=== PATIENT | female | born 1980 | race Caucasian/White ===

== ENCOUNTER 2016-09-26 13:57 | Emergency (ER) | payer MEDICAID ==
[~2016-09-26] VITALS: Ht 160 cm; Wt 45.0 kg
[~2016-09-26 13:57] MED LIST: ACET500C PO; CIPR250T52 PO; ZOFR4TAB3 SL
[2016-09-26 14:23] VITALS: BP 140/103; PULSE 111; RESP 18; TEMP 98.6; O2SAT 98
[2016-09-26] MEDS ORDERED: KETOROLAC TROMETHAMINE 60 MG/2 ML (IM) VIAL IM ONE (15:30)
[2016-09-26] MEDS ORDERED: PROMETHAZINE INJ 25 MG/ML VIAL IM ONE (15:30)
--- NOTE | 2016-09-26 15:34 | PD ---
HPI Chief Complaint: Abdominal Pain Time Seen by Provider: 15:19 Travel History International Travel<30 days: No Contact w/Intl Traveler<30days: No Traveled to known affect area: No History of Present Illness HPI 36-year-old female complains of abdominal pain. Patient has history recurrent abdominal pain. Patient states that she has history of endometriosis and awaiting appointment with cotton header. Patient has been to in emergency room multiple times in the past for the same problem. Blood tests and CT scan abdomen pelvis essentially unchanged much. Occasionally patient has mild hypokalemia. Patient denies any fever chills. Patient states that she has intermittent nausea vomiting with the pain. Patient denies any dysuria or frequency. Patient denies any vaginal discharge or bleeding. On a scale of 1- 10 the pain is a 10. PFSH Past Medical History Hx Anticoagulant Therapy: No Arthritis: No Asthma: No Autoimmune Disease: No Blood Disorders: No Anxiety: No Depression: No Heart Rhythm Problems: No Cancer: No Cardiovascular Problems: No High Cholesterol: No Chemotherapy: No Chest Pain: No Congestive Heart Failure: No COPD: No Cerebrovascular Accident: No Diabetes: No Diminished Hearing: No Endocrine: No Gastrointestinal Disorders: Yes (GASTROPARESIS, poss. IBS, chronic abdominal pain) GERD: Yes Glaucoma: No Genitourinary: No Headaches: No Hepatitis: No Hiatal Hernia: Yes Hypertension: No Immune Disorder: No Implanted Vascular Access Dvce: No Kidney Stones: No Musculoskeletal: No Neurologic: Yes Psychiatric: No Reproductive: Yes (endometriosis) Respiratory: No Immunizations Current: No Migraines: No Myocardial Infarction: No Radiation Therapy: No Seizures: No Sickle Cell Disease: No Sleep Apnea: No Thyroid Disease: No Ulcer: Yes ?: Not : 3 Para: 2 Miscarriage: 0 : 1 Ovarian Cysts: Yes Past Surgical History Abdominal Surgery: Yes (multiple laps for scar tissue removal) AICD: No Appendectomy: No Arteriovenous Shunt: No Cardiac Surgery: No Section: Yes Cholecystectomy: No Ear Surgery: No Endocrine Surgery: No Eye Surgery: No Genitourinary Surgery: Yes Gynecologic Surgery: Yes (csection/ lining of uterus removed) Insulin Pump: No Joint Replacement: No Neurologic Surgery: Yes Oral Surgery: No Pacemaker: No Thoracic Surgery: No Tonsillectomy: Yes Social History Alcohol Use: No Tobacco Use: No Substance Use: Yes (SOCIAL marijuana) Allergies-Medications (Allergen,Severity, Reaction): Coded Allergies: Amoxicillin (Verified Allergy, Severe, VOMITING, 09/26/16) Morphine (Verified Allergy, Severe, Hives , 09/26/16) Penicillin (Verified Allergy, Severe, VOMITING, 09/26/16) Sulfa (Verified Adverse Reaction, Severe, VOMITING, 09/26/16) Reported Meds & Prescriptions Reported Meds & Active Scripts Active Cipro (Ciprofloxacin HCl) 250 Mg Tab 250 Mg PO BID 3 Days Zofran Odt (Ondansetron Odt) 4 Mg Tab 4 Mg SL Q6HR PRN Acetaminophen 500 Mg Cap 500 Mg PO Q4-6H PRN Review of Systems General / Constitutional: No: Fever Eyes: No: Visual changes HENT: No: Headaches Cardiovascular: No: Chest Pain or Discomfort Respiratory: No: Shortness of Breath Gastrointestinal: Positive: Nausea, Vomiting, Abdominal Pain Genitourinary: No: Dysuria Musculoskeletal: No: Pain Skin: No Rash Neurologic: No: Weakness Psychiatric: No: Depression Endocrine: No: Polydipsia Hematologic/Lymphatic: No: Easy Bruising Physical Exam Narrative GENERAL: Well-nourished, well-developed patient. SKIN: Warm and dry. HEAD: Normocephalic. EYES: No scleral icterus. No injection or drainage. NECK: Supple, trachea midline. No JVD or lymphadenopathy. CARDIOVASCULAR: Regular rate and rhythm without murmurs, gallops, or rubs. RESPIRATORY: Breath sounds equal bilaterally. No accessory muscle use. GASTROINTESTINAL: Abdomen soft, nondistended. Patient has mild diffuse tenderness over the abdomen. No rebound tenderness. No mass. MUSCULOSKELETAL: No cyanosis, or edema. BACK: Nontender without obvious deformity. No CVA tenderness. Neurologic exam normal. Data Data Last Documented VS Vital Signs Date Time Temp Pulse Resp B/P Pulse Ox O2 Delivery O2 Flow Rate FiO2 09/26/16 14:23 98.6 111 18 140/103 98 Orders Urinalysis - C+S If Indicated (09/26/16 14:17) Ed Urine Pregnancytest Poc (09/26/16 14:17) Ketorolac Inj (Toradol Inj) (09/26/16 15:30) Promethazine Inj (Phenergan Inj) (09/26/16 15:30) MDM Medical Decision Making Medical Screen Exam Complete: Yes Emergency Medical Condition: Yes Medical Record Reviewed: Yes Differential Diagnosis Differential diagnosis including chronic recurrent abdominal pain. Gastritis, PUD, appendicitis, cholecystitis, colitis, UTI, pyelonephritis. Narrative Course 36-year-old female with recurrent abdominal pain and pelvic pain. Patient was offered Toradol and Phenergan for pain. Patient refused and walked out. Diagnosis Primary Impression: Recurrent abdominal pain Patient Instructions: General Instructions Additional Instructions: Patient left AMA. Med/Other Pt SpecificInfo: No Change to Meds Disposition: 07 AGAINST MEDICAL ADVICE Condition: Konrad Sanchez MD Sep 26, 2016 15:34
== END 2016-09-26 15:32 | disposition left against medical advice (07) ==
LOC: PHED 13:57
DX: R10.84 Generalized abdominal pain (principal); R11.2 Nausea with vomiting, unspecified; R10.2 Pelvic and perineal pain; N80.9 Endometriosis, unspecified; Z87.19 Personal history of other diseases of the digestive system; Z53.20 Procedure and treatment not carried out because of patient's decision for unspecified reasons
CPT/HCPCS: 99283

== ENCOUNTER 2016-09-26 21:04 | Emergency (ER) | payer MEDICAID ==
[~2016-09-26] VITALS: Ht 160 cm; Wt 46.0 kg
[2016-09-26 21:06] VITALS: BP 159/80; PULSE 103; RESP 16; TEMP 97.2; O2SAT 98
[2016-09-27] MEDS ORDERED: PROMETHAZINE INJ 25 MG/ML VIAL IM ONE (03:00)
[2016-09-27] MEDS ORDERED: KETOROLAC TROMETHAMINE 60 MG/2 ML (IM) VIAL IM ONE (03:00)
--- NOTE | 2016-09-27 04:05 | PD ---
HPI Chief Complaint: GI Complaint Time Seen by Provider: 02:48 Travel History International Travel<30 days: No Contact w/Intl Traveler<30days: No Traveled to known affect area: No History of Present Illness HPI 36-year-old female came to the emergency room with history of abdominal pain and vomiting. Patient has had these complaints multiple times in the past. 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 [facility] Past Medical History Narrative Medical List of her past medical history as reviewed from the nursing note. Hx Anticoagulant Therapy: No Arthritis: No Asthma: No Autoimmune Disease: No Blood Disorders: No Anxiety: No Depression: No Heart Rhythm Problems: No Cancer: No Cardiovascular Problems: No High Cholesterol: No Chemotherapy: No Chest Pain: No Congestive Heart Failure: No COPD: No Cerebrovascular Accident: No Diabetes: No Diminished Hearing: No Endocrine: No Gastrointestinal Disorders: Yes (GASTROPARESIS, poss. IBS, chronic abdominal pain) GERD: Yes Glaucoma: No Genitourinary: No Headaches: No Hepatitis: No Hiatal Hernia: Yes Hypertension: No Immune Disorder: No Implanted Vascular Access Dvce: No Kidney Stones: No Musculoskeletal: No Neurologic: Yes Psychiatric: No Reproductive: Yes (endometriosis) Respiratory: No Immunizations Current: No Migraines: No Myocardial Infarction: No Radiation Therapy: No Seizures: No Sickle Cell Disease: No Sleep Apnea: No Thyroid Disease: No Ulcer: Yes ?: Not LMP: FEB>ABLATION : 3 Para: 2 Miscarriage: 0 : 1 Ovarian Cysts: Yes Past Surgical History Abdominal Surgery: Yes (multiple laps for scar tissue removal) AICD: No Appendectomy: No Arteriovenous Shunt: No Cardiac Surgery: No Section: Yes Cholecystectomy: No Ear Surgery: No Endocrine Surgery: No Eye Surgery: No Genitourinary Surgery: Yes Gynecologic Surgery: Yes (csection/ lining of uterus removed) Insulin Pump: No Joint Replacement: No Neurologic Surgery: Yes Oral Surgery: No Pacemaker: No Thoracic Surgery: No Tonsillectomy: Yes Other Surgery: Yes (colon polyp rempoval) Social History Alcohol Use: No Tobacco Use: No Substance Use: Yes (SOCIAL marijuana) Allergies-Medications (Allergen,Severity, Reaction): Coded Allergies: Amoxicillin (Verified Allergy, Severe, VOMITING, 09/26/16) Morphine (Verified Allergy, Severe, Hives , 09/26/16) Penicillin (Verified Allergy, Severe, VOMITING, 09/26/16) Sulfa (Verified Adverse Reaction, Severe, VOMITING, 09/26/16) Comments List of her allergies reviewed from the nursing note. Reported Meds & Prescriptions Reported Meds & Active Scripts Active Narrative Medication List of her home medications reviewed from the nursing note. Review of Systems Except as stated in HPI: all other systems reviewed are Neg Physical Exam Narrative GENERAL: Awake, alert, anxious, moderate distress SKIN: Warm and dry. HEAD: Atraumatic. Normocephalic. EYES: Pupils equal and round. No scleral icterus. No injection or drainage. ENT: No nasal bleeding or discharge. Mucous membranes pink and moist. NECK: Trachea midline. No JVD. CARDIOVASCULAR: Regular rate and rhythm. No murmur appreciated. RESPIRATORY: No accessory muscle use. Clear to auscultation. Breath sounds equal bilaterally. GASTROINTESTINAL: Abdomen soft, non-tender, nondistended. Hepatic and splenic margins not palpable. MUSCULOSKELETAL: No obvious deformities. No clubbing. No cyanosis. No edema. NEUROLOGICAL: Awake and alert. No obvious cranial nerve deficits. Motor grossly within normal limits. Normal speech. PSYCHIATRIC: Appropriate mood and affect; insight and judgment normal. Data Data Last Documented VS Vital Signs Date Time Temp Pulse Resp B/P Pulse Ox O2 Delivery O2 Flow Rate FiO2 09/26/16 21:06 97.2 103 16 159/80 98 Orders Promethazine Inj (Phenergan Inj) (09/27/16 03:00) Ketorolac Inj (Toradol Inj) (09/27/16 03:00) [facility] Medical Decision Making Medical Screen Exam Complete: Yes Emergency Medical Condition: Yes Medical Record Reviewed: Yes Differential Diagnosis Acute on chronic abdominal pain Narrative Course 4:04 AM patient will be discharged home. She was given IM Phenergan and IM Toradol. She has not vomited since. Procedures EKG Prior to Arrival: No Diagnosis Primary Impression: Chronic abdominal pain Additional Impression: Recurrent abdominal pain Referrals: Primary Care Physician 2 days Additional Instructions: Follow-up with primary care. Disposition: 01 DISCHARGE HOME Condition: Stable Pro Yepez MD Sep 27, 2016 04:05
== END 2016-09-27 05:46 | disposition home or self-care (01) ==
LOC: NEPE 21:04
DX: R10.9 Unspecified abdominal pain (principal)
CPT/HCPCS: 96372; 99284; J1885; J2550

== ENCOUNTER 2016-11-10 05:01 | Emergency (ER) | payer MEDICAID ==
[~2016-11-10] VITALS: Ht 160 cm; Wt 46.3 kg
[2016-11-10 05:13] VITALS: BP 135/90; PULSE 126; RESP 22; TEMP 98.3; O2SAT 100
[2016-11-10] MEDS ORDERED: MEDR2.5 PO (05:57)
[2016-11-10] MEDS ORDERED: SODIUM CHLOR 0.9% 1000 ML INJ 1,000 ML IV ONE (06:07)
[2016-11-10] MEDS ORDERED: ONDANSETRON HCL 4 MG/2 ML VIAL IV PUSH ONE (06:15)
[2016-11-10] MEDS ORDERED: KETOROLAC TROMETHAMINE 30 MG/ML (IVP) VIAL IV PUSH ONE (06:15)
--- NOTE | 2016-11-10 06:21 | PD ---
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 Patient reports that she has been diagnosed with endometriosis and intractable pain. Patient reports she was seen at [facility] in September. Patient reports at that time she was told that she would be given a prescription for Provera. If her symptoms did not resolve that she would need to have a hysterectomy. She reportedly had uterine ablation in 2014. Patient states that she feels as if she is going to have her menstrual cycle although she no longer menstruates. Patient has had no fever or chills. Patient states she last took Percocet on Sunday and has had vomiting since that time. Patient reports that she needs Zofran and Dilaudid as is the only thing that controls her pain. Patient does not report any hematemesis coffee-ground emesis melena or hematochezia. Patient denies dysuria frequency or urgency. Patient denies vaginal bleeding or vaginal discharge. Patient does not have a local SUPERVISOR FUSING ROOM. Patient is to be followed by Dr. Shi in [place]. Patient is not scheduled to see the [facility] pickers material handlers until December. Patient also has history of gastroparesis and cyclic vomiting syndrome. [facility] Past Medical History Narrative Medical Endometriosis, cyclic vomiting syndrome, gastroparesis, GERD, hiatal hernia, C- section, laparotomy, laparoscopic pelvic surgery, uterine ablation; marijuana use; nursing notes reviewed Hx Anticoagulant Therapy: No Arthritis: No Asthma: No Autoimmune Disease: No Blood Disorders: No Anxiety: No Depression: No Heart Rhythm Problems: No Cancer: No Cardiovascular Problems: No High Cholesterol: No Chemotherapy: No Chest Pain: No Congestive Heart Failure: No COPD: No Cerebrovascular Accident: No Diabetes: No Diminished Hearing: No Endocrine: No Gastrointestinal Disorders: Yes (GASTROPARESIS, poss. IBS, chronic abdominal pain) GERD: Yes Glaucoma: No Genitourinary: No Headaches: No Hepatitis: No Hiatal Hernia: Yes Hypertension: No Immune Disorder: No Implanted Vascular Access Dvce: No Kidney Stones: No Musculoskeletal: No Neurologic: Yes Psychiatric: No Reproductive: Yes (endometriosis) Respiratory: No Immunizations Current: No Migraines: No Myocardial Infarction: No Radiation Therapy: No Seizures: No Sickle Cell Disease: No Sleep Apnea: No Thyroid Disease: No Ulcer: Yes ?: Not : 3 Para: 2 Miscarriage: 0 : 1 Ovarian Cysts: Yes Past Surgical History Abdominal Surgery: Yes (multiple laps for scar tissue removal) AICD: No Appendectomy: No Arteriovenous Shunt: No Cardiac Surgery: No Section: Yes Cholecystectomy: No Ear Surgery: No Endocrine Surgery: No Eye Surgery: No Genitourinary Surgery: Yes Gynecologic Surgery: Yes (csection/ lining of uterus removed) Insulin Pump: No Joint Replacement: No Neurologic Surgery: Yes Oral Surgery: No Pacemaker: No Thoracic Surgery: No Tonsillectomy: Yes Other Surgery: Yes (colon polyp rempoval) Social History Alcohol Use: No Tobacco Use: No (QUIT AGE 34) Substance Use: Yes (SOCIAL marijuana) Allergies-Medications (Allergen,Severity, Reaction): Coded Allergies: Amoxicillin (Verified Allergy, Severe, VOMITING, 11/10/16) Morphine (Verified Allergy, Severe, Hives , 11/10/16) Penicillin (Verified Allergy, Severe, VOMITING, 11/10/16) Sulfa (Verified Adverse Reaction, Severe, VOMITING, 11/10/16) Reported Meds & Prescriptions Reported Meds & Active Scripts Active Reported Provera (Medroxyprogesterone Acetate) 2.5 Mg Tab 2.5 Mg PO DAILY Start day 21 Narrative Medication Percocet Review of Systems Except as stated in HPI: all other systems reviewed are Neg General / Constitutional: No: Fever, Chills HENT: No: Congestion Cardiovascular: No: Chest Pain or Discomfort Respiratory: No: Shortness of Breath Gastrointestinal: Positive: Nausea, Vomiting, Abdominal Pain, No: Hematemesis , Hematochezia Genitourinary: Positive: Pelvic Pain, No: Urgency, Frequency, Dysuria, Discharge, Vaginal Bleeding Musculoskeletal: No: Myalgias, Arthralgias Skin: No Rash Neurologic: No: Weakness Psychiatric: No: Anxiety Hematologic/Lymphatic: No: Easy Bruising Physical Exam Narrative GENERAL: Well-developed well-nourished thin female writhing back and forth on the bed stating that her pelvic pain is so severe she can't tolerate it. SKIN: Warm and dry. Chronic irregular hyperpigmentation to the back. HEAD: Normocephalic. EYES: No scleral icterus. No injection or drainage. NECK: Supple, trachea midline. No JVD or lymphadenopathy. CARDIOVASCULAR: Regular rate and rhythm without murmurs, gallops, or rubs. RESPIRATORY: Breath sounds equal bilaterally. No accessory muscle use. GASTROINTESTINAL: Abdomen soft, non-tender, nondistended. MUSCULOSKELETAL: No cyanosis, or edema. BACK: Nontender without obvious deformity. No CVA tenderness. Data Data Last Documented VS Vital Signs Date Time Temp Pulse Resp B/P Pulse Ox O2 Delivery O2 Flow Rate FiO2 11/10/16 05:13 98.3 126 22 135/90 100 Orders Complete Blood Count With Diff (11/10/16 06:07) Basic Metabolic Panel (Bmp) (11/10/16 06:07) Wet Prep Profile (11/10/16 06:07) Urinalysis - C+S If Indicated (11/10/16 06:07) Iv Access Insert/Monitor (11/10/16 06:07) Sodium Chlor 0.9% 1000 Ml Inj (Ns 1000 M (11/10/16 06:07) Ed Urine Pregnancytest Poc (11/10/16 06:07) Ketorolac Inj (Toradol Inj) (11/10/16 06:15) Ondansetron Inj (Zofran Inj) (11/10/16 06:15) Ct Abd/Pel W Iv Contrast(Rout) (11/10/16 ) Us Pelvis Comp W Dop Transvag (11/10/16 ) Hydromorphone Pf Inj (Dilaudid Pf Inj) (11/10/16 07:00) Cath For Specimen (11/10/16 06:52) Labs Laboratory Tests Test 11/10/16 11/10/16 06:05 06:20 Clue Cells (Wet Prep) NONE SEEN Vaginal Trichomonas (Wet Prep) NONE SEEN Vaginal Yeast (Wet Prep) NONE SEEN White Blood Count 19.1 TH/MM3 Red Blood Count 4.66 MIL/MM3 Hemoglobin 14.8 GM/DL Hematocrit 42.5 % Mean Corpuscular Volume 91.2 FL Mean Corpuscular Hemoglobin 31.8 PG Mean Corpuscular Hemoglobin 34.8 % Concent Red Cell Distribution Width 12.7 % Platelet Count 403 TH/MM3 Mean Platelet Volume 8.0 FL Neutrophils (%) (Auto) 88.9 % Lymphocytes (%) (Auto) 6.8 % Monocytes (%) (Auto) 3.5 % Eosinophils (%) (Auto) 0.0 % Basophils (%) (Auto) 0.8 % Neutrophils # (Auto) 16.9 TH/MM3 Lymphocytes # (Auto) 1.3 TH/MM3 Monocytes # (Auto) 0.7 TH/MM3 Eosinophils # (Auto) 0.0 TH/MM3 Basophils # (Auto) 0.2 TH/MM3 CBC Comment DIFF FINAL Differential Comment Sodium Level 137 MEQ/L Potassium Level 3.1 MEQ/L Chloride Level 99 MEQ/L Carbon Dioxide Level 24.9 MEQ/L Anion Gap 13 MEQ/L Blood Urea Nitrogen 28 MG/DL Creatinine 1.00 MG/DL Estimat Glomerular Filtration 62 ML/MIN Rate Random Glucose 166 MG/DL Calcium Level 9.9 MG/DL [facility] Medical Decision Making Medical Screen Exam Complete: Yes Emergency Medical Condition: Yes Medical Record Reviewed: Yes Interpretation(s) Vital Signs Date Time Temp Pulse Resp B/P Pulse Ox O2 Delivery O2 Flow Rate FiO2 11/10/16 05:13 98.3 126 22 135/90 100 CBC & BMP Diagram 11/10/16 06:20 Differential Diagnosis Chronic pain syndrome, endometriosis, UTI, ruptured ovarian cyst, ovarian torsion, ectopic , narcotic withdrawal , drug seeking behavior Narrative Course IV access obtained urine specimen collected [id number] 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 Bello for pending follow-up of pending labs and imaging studies and patient disposition Missy Gillespie MD Nov 10, 2016 06:21
[2016-11-10 06:43] LABS: AUTOMATED NEUTROPHIL # 16.9 TH/MM3 (1.8-7.7); BASOPHIL # 0.2 TH/MM3 (0-0.2); BASOPHIL % 0.8 % (0.0-2.0); HEMATOCRIT 42.5 % (35.0-46.0); LYMPH % 6.8 % (9.0-44.0); LYMPHOCYTE # 1.3 TH/MM3 (1.0-4.8); MEAN CELL VOLUME 91.2 FL (80.0-100.0); MEAN CORPUSCULAR HEMOGLOBIN 31.8 PG (27.0-34.0); MEAN CORPUSCULAR HGB CONC 34.8 % (32.0-36.0); MONO % 3.5 % (0.0-8.0); NEUT % 88.9 % (16.0-70.0); PLATELET COUNT 403 TH/MM3 (150-450); RED BLOOD COUNT 4.66 MIL/MM3 (4.00-5.30); RED CELL DISTRIBUTION WIDTH 12.7 % (11.6-17.2); WHITE BLOOD COUNT 19.1 TH/MM3 (4.0-11.0)
[2016-11-10 06:44] LABS: HEMO FLAGS DIFF FINAL
[2016-11-10 06:52] LABS: POTASSIUM 3.1 MEQ/L (3.5-5.1)
[2016-11-10 06:54] LABS: BICARBONATE 24.9 MEQ/L (21.0-32.0)
[2016-11-10] MEDS ORDERED: HYDROmorphone HCL PF 1 MG/ML VIAL IV PUSH ONE (07:00)
[2016-11-10 07:10] VITALS: BP 143/87; PULSE 97; RESP 16; TEMP 100; O2SAT 100
[2016-11-10 07:15] LABS: BLOOD, URINE NEG (NEG); GLUCOSE,URINE NEG (NEG); KETONE, URINE 15 mg/dL (NEG); NITRITE,URINE NEG (NEG); PH, URINE 5.5 (5.0-8.5)
[2016-11-10 07:27] LABS: METHOD OF COLLECTION CLEAN CATCH; URINE COLOR YELLOW (YELLW/STRAW)
[2016-11-10 07:28] LABS: COMMENT (UR) CULT NOT INDICATED; CULTURE IF INDICATED CULT NOT INDICATED; SQUAMOUS EPITHELIAL CELL URINE 0-5 /hpf (0-5); WBC, URINE 0-2 /hpf (0-5)
[2016-11-10] MEDS ORDERED: IOHEXOL 350 MG/ML 10 ML VIAL (for RAD DIAG) IV ONE (07:39)
--- NOTE | 2016-11-10 08:00 | RADHPO ---
EXAM DATE/TIME: 11/10/2016 07:28 [facility] COMPARISON: CT ABDOMEN & PELVIS W/O CONTRAST, March 09, 2016, 8:34. INDICATIONS : Lower abdominal pain x 3 days. IV CONTRAST: 80 cc Omnipaque 350 (iohexol) IV ORAL CONTRAST: No oral contrast ingested. RADIATION DOSE: 4.45 CTDIvol (mGy) MEDICAL HISTORY : Gastroesophageal reflux disease. SURGICAL HISTORY : section. Hysterectomy.Uterine ablation. ENCOUNTER: Initial ACUITY: 3 days PAIN SCALE: 9/10 LOCATION: Bilateral lower quadrant TECHNIQUE: Volumetric scanning of the abdomen and pelvis was performed. Using automated exposure control and adjustment of the mA and/or kV according to patient size, radiation dose was kept as low as reasonably achievable to obtain optimal diagnostic quality images. FINDINGS: LOWER LUNGS: The visualized lower lungs are clear. LIVER: Homogeneous density without lesion. There is no dilation of the biliary tree. No calcifi ed gallstones. Gallbladder seen as a luminal structure without wall thickening SPLEEN: Normal size without lesion. PANCREAS: Within normal limits. KIDNEYS: Normal in size and shape. There is no mass, stone or hydronephrosis. ADRENAL GLANDS: Within normal limits. VASCULAR: There is no aortic aneurysm. BOWEL/MESENTERY: The stomach, small bowel, and colon demonstrate no acute abnormality. There is no free intraperitoneal air or fluid. ABDOMINAL WALL: Within normal limits. RETROPERITONEUM: There is no lymphadenopathy. BLADDER: No wall thickening or mass. REPRODUCTIVE: 2.2 cm right pelvic adnexal probably ovarian cyst.. INGUINAL: There is no lymphadenopathy or hernia. MUSCULOSKELETAL: Within normal limits for patient age. CONCLUSION: 2.2 cm right adnexal ovarian cyst Jerry Valdes MD on November 10, 2016 at 7:54 Board Certified Radiologist. This report was verified electronically.
[2016-11-10 09:13] VITALS: BP 107/74; PULSE 73; RESP 17; TEMP 98; O2SAT 98
--- NOTE | 2016-11-10 09:18 | RADHPO ---
EXAM DATE/TIME: 11/10/2016 12:55 [facility] COMPARISON: CT ABDOMEN & PELVIS W CONTRAST, November 10, 2016, 7:28. INDICATIONS : Pelvic pain. Abnormal abdomen pelvic CT demonstrating a 2.2 cm right adnexal cyst. MEDICAL HISTORY : Gastroesophageal reflux disease. Gastroparesis. Hernia, hiatal. Head trauma. Ulcer. Endometriosis. Ov pati cyst. SURGICAL HISTORY : Tonsillectomy. section. Uterine ablation. ENCOUNTER: Initial ACUITY: 3 days PAIN SCORE: 3/10 LOCATION: Right pelvis MEASUREMENTS: UTERUS: 7.5 x 4.2 x 5.0 cm ENDOMETRIAL STRIPE: 7 mm RIGHT OVARY: 3.0 x 2.7 x 2.3 cm LEFT OVARY: 3.2 x 2.0 x 2.1 cm FINDINGS: UTERUS: The myometrium has homogeneous echotexture without mass. RIGHT OVARY: There is a 1.7 x 1.8 x 1.8 cm cystic structure in the right ovary with apparent mild septation. There is no abnormal color flow. LEFT OVARY: Ovary contains no mass or significant cystic lesion. MISCELLANEOUS: Small amount of fluid in the cul-de-sac. CONCLUSION: 1. Mild to complex right ovarian cyst. 2. Small amount of free fluid in the cul-de-sac. Kenny Lee MD on November 10, 2016 at 9:10 Board Certified Radiologist. This report was verified electronically.
--- NOTE | 2016-11-10 10:37 | PD ---
Data Data Last Documented VS Vital Signs Date Time Temp Pulse Resp B/P Pulse Ox O2 Delivery O2 Flow Rate FiO2 11/10/16 09:13 98.0 73 17 107/74 98 Room Air Orders Complete Blood Count With Diff (11/10/16 06:07) Basic Metabolic Panel (Bmp) (11/10/16 06:07) Wet Prep Profile (11/10/16 06:07) Urinalysis - C+S If Indicated (11/10/16 06:07) Iv Access Insert/Monitor (11/10/16 06:07) Sodium Chlor 0.9% 1000 Ml Inj (Ns 1000 M (11/10/16 06:07) Ed Urine Pregnancytest Poc (11/10/16 06:07) Ketorolac Inj (Toradol Inj) (11/10/16 06:15) Ondansetron Inj (Zofran Inj) (11/10/16 06:15) Ct Abd/Pel W Iv Contrast(Rout) (11/10/16 ) Hydromorphone Pf Inj (Dilaudid Pf Inj) (11/10/16 07:00) Cath For Specimen (11/10/16 06:52) Iohexol 350 Inj (Omnipaque 350 Inj) (11/10/16 07:39) Us Pelvis Comp W Doppler (11/10/16 ) Labs Laboratory Tests Test 11/10/16 11/10/16 11/10/16 06:05 06:20 06:55 Clue Cells (Wet Prep) NONE SEEN Vaginal Trichomonas (Wet Prep) NONE SEEN Vaginal Yeast (Wet Prep) NONE SEEN White Blood Count 19.1 TH/MM3 Red Blood Count 4.66 MIL/MM3 Hemoglobin 14.8 GM/DL Hematocrit 42.5 % Mean Corpuscular Volume 91.2 FL Mean Corpuscular Hemoglobin 31.8 PG Mean Corpuscular Hemoglobin 34.8 % Concent Red Cell Distribution Width 12.7 % Platelet Count 403 TH/MM3 Mean Platelet Volume 8.0 FL Neutrophils (%) (Auto) 88.9 % Lymphocytes (%) (Auto) 6.8 % Monocytes (%) (Auto) 3.5 % Eosinophils (%) (Auto) 0.0 % Basophils (%) (Auto) 0.8 % Neutrophils # (Auto) 16.9 TH/MM3 Lymphocytes # (Auto) 1.3 TH/MM3 Monocytes # (Auto) 0.7 TH/MM3 Eosinophils # (Auto) 0.0 TH/MM3 Basophils # (Auto) 0.2 TH/MM3 CBC Comment DIFF FINAL Differential Comment Sodium Level 137 MEQ/L Potassium Level 3.1 MEQ/L Chloride Level 99 MEQ/L Carbon Dioxide Level 24.9 MEQ/L Anion Gap 13 MEQ/L Blood Urea Nitrogen 28 MG/DL Creatinine 1.00 MG/DL Estimat Glomerular Filtration 62 ML/MIN Rate Random Glucose 166 MG/DL Calcium Level 9.9 MG/DL Urine Collection Type CLEAN CATCH Urine Color YELLOW Urine Turbidity MARKED Urine pH 5.5 Urine Specific Fox 1.033 Urine Protein 100 mg/dL Urine Glucose (UA) NEG mg/dL Urine Ketones 15 mg/dL Urine Occult Blood NEG Urine Nitrite NEG Urine Bilirubin NEG Urine Leukocyte Esterase NEG Urine WBC 0-2 /hpf Urine Squamous Epithelial 0-5 /hpf Cells Urine Amorphous Sediment LARGE Microscopic Urinalysis Comment CULT NOT INDICATED Urine Collection Time 06:55 MDM Supervised Visit with LIV: No Narrative Course This case is checked out to me by Dr. Gillespie at 7 AM. I have reviewed the entirety of the workup and discussed them with the patient. She had leukocytosis and hypokalemia on lab studies. Extensive imaging including CT of abdomen and pelvis and ultrasound both were negative except for a minor right ovarian cyst which I suspect is an incidental finding. This patient clearly has some narcotic issues. When I went into the room she started begging and badgering me for IV Dilaudid. I didn't feel this was indicated. I discussed other options and offered her other things which she refused. She got upset and started crying. I suspect she is having some emotional pain and likely narcotic withdrawal symptoms. As noted, the patient got upset and stomped out of the emergency room. She did not let me finish. She did not get instructions or prescriptions. Behavior is highly suspicious for narcotic seeking behavior. Diagnosis Primary Impression: Recurrent abdominal pain Additional Impression: Drug-seeking behavior Patient Instructions: General Instructions Departure Forms: Tests/Procedures Disposition: 07 AGAINST MEDICAL ADVICE Murali Bello MD Nov 10, 2016 10:37
== END 2016-11-10 10:48 | disposition left against medical advice (07) ==
LOC: PHED 05:01
DX: R10.2 Pelvic and perineal pain (principal); Z76.5 Malingerer [conscious simulation]; E87.6 Hypokalemia; D72.829 Elevated white blood cell count, unspecified; N83.201 Unspecified ovarian cyst, right side; K44.9 Diaphragmatic hernia without obstruction or gangrene; K21.9 Gastro-esophageal reflux disease without esophagitis; K31.84 Gastroparesis; G89.29 Other chronic pain; K58.9 Irritable bowel syndrome, unspecified; N80.9 Endometriosis, unspecified
CPT/HCPCS: 74177; 76856; 80048; 81001; 84703; 85025; 87210; 93975; 96361; 96374; 96375; 99284; J1170; J1885; J2405; J7030; P9612; Q9967

== ENCOUNTER 2016-11-24 06:29 | Emergency (ER) | payer MEDICAID ==
[~2016-11-24] VITALS: Ht 160 cm; Wt 45.0 kg
[~2016-11-24 06:29] MED LIST changes: -ACET500C PO; -CIPR250T52 PO; +MEDR2.5 PO; -ZOFR4TAB3 SL
[2016-11-24 06:38] VITALS: BP 148/90; PULSE 120; RESP 16; TEMP 98.3; O2SAT 97
[2016-11-24] MEDS ORDERED: SODIUM CHLOR 0.9% 1000 ML INJ 1,000 ML IV SCH (07:10)
[2016-11-24 07:11] VITALS: RESP 16; O2SAT 98
[2016-11-24] MEDS ORDERED: ONDANSETRON HCL 4 MG/2 ML VIAL IVP ONE (07:15)
[2016-11-24] MEDS ORDERED: SODIUM CHLORIDE 0.9% FLUSH 5 ML FLUSH IVF PRN (07:15)
[2016-11-24] MEDS ORDERED: KETOROLAC TROMETHAMINE 30 MG/ML (IVP) VIAL IVP ONE (07:15)
--- NOTE | 2016-11-24 07:17 | PD ---
HPI Chief Complaint: Abdominal Pain Time Seen by Provider: 07:02 Travel History International Travel<30 days: No Contact w/Intl Traveler<30days: No Traveled to known affect area: No History of Present Illness HPI 36yo F with PMH of endometriosis, gastroparesis, cyclic vomiting and chronic abdominal pain presents to the ED with c/o abdominal pain for 2 weeks. +NBNB vomiting. Pt denies any fever, chest pain, sob, diarrhea, urinary complaint, vaginal bleeding or discharge. Pt was just seen at [place] 2 weeks ago on . Pt had same pain then and had CTa/p that showed 2.2cm right adnexal ovarian cyst. Pelvic US at that time also showed right ovarian cyst. Pt has drug seeking behavior and has been here multiple times for the same abdominal pain. She is begging for dilaudid and zofran and states dilaudid is the only medication that helps with her pain. States she is on hormone therapy from [facility] but they did not give her anything for pain. PFSH Past Medical History Hx Anticoagulant Therapy: No Arthritis: No Asthma: No Autoimmune Disease: No Blood Disorders: No Anxiety: No Depression: No Heart Rhythm Problems: No Cancer: No Cardiovascular Problems: No High Cholesterol: No Chemotherapy: No Chest Pain: No Congestive Heart Failure: No COPD: No Cerebrovascular Accident: No Diabetes: No Diminished Hearing: No Endocrine: No Gastrointestinal Disorders: Yes (GASTROPARESIS) GERD: Yes Glaucoma: No Genitourinary: No Headaches: No Hepatitis: No Hiatal Hernia: Yes Hypertension: No Immune Disorder: No Implanted Vascular Access Dvce: No Kidney Stones: No Musculoskeletal: No Neurologic: Yes Psychiatric: No Reproductive: Yes (ENDIOMETRESIS) Respiratory: No Immunizations Current: No Migraines: No Myocardial Infarction: No Radiation Therapy: No Seizures: No Sickle Cell Disease: No Sleep Apnea: No Thyroid Disease: No Ulcer: Yes Influenza Vaccination: No ?: Not : 3 Para: 2 Miscarriage: 0 : 1 Ovarian Cysts: Yes Past Surgical History Abdominal Surgery: Yes (EXP LAP) AICD: No Appendectomy: No Arteriovenous Shunt: No Cardiac Surgery: No Section: Yes Cholecystectomy: No Ear Surgery: No Endocrine Surgery: No Eye Surgery: No Genitourinary Surgery: Yes Gynecologic Surgery: Yes Insulin Pump: No Joint Replacement: No Neurologic Surgery: Yes Oral Surgery: No Pacemaker: No Thoracic Surgery: No Tonsillectomy: Yes Other Surgery: Yes (colon polyp rempoval) Social History Alcohol Use: No Tobacco Use: No (QUIT 2014) Substance Use: Yes (SOCIAL marijuana) Allergies-Medications (Allergen,Severity, Reaction): Coded Allergies: Amoxicillin (Verified Allergy, Severe, VOMITING, 11/24/16) Morphine (Verified Allergy, Severe, Hives , 11/24/16) Penicillin (Verified Allergy, Severe, VOMITING, 11/24/16) Sulfa (Verified Adverse Reaction, Severe, VOMITING, 11/24/16) Reported Meds & Prescriptions Reported Meds & Active Scripts Active Reported Provera (Medroxyprogesterone Acetate) 2.5 Mg Tab 2.5 Mg PO DAILY Start day 21 Review of Systems Except as stated in HPI: all other systems reviewed are Neg Physical Exam Narrative GENERAL: 36yo F not in acute distress. SKIN: Warm and dry. HEAD: Atraumatic. Normocephalic. NECK: Trachea midline. No JVD. CARDIOVASCULAR: Regular rate and rhythm. No murmur appreciated. RESPIRATORY: No accessory muscle use. Clear to auscultation. Breath sounds equal bilaterally. GASTROINTESTINAL: Abdomen soft, no guarding or rebound tenderness. States pain everywhere but no point tenderness on my exam. MUSCULOSKELETAL: No obvious deformities. No clubbing. No cyanosis. No edema. NEUROLOGICAL: Awake and alert. No obvious cranial nerve deficits. Motor grossly within normal limits. Normal speech. Data Data Last Documented VS Vital Signs Date Time Temp Pulse Resp B/P Pulse Ox O2 Delivery O2 Flow Rate FiO2 11/24/16 08:00 92 16 136/72 98 Room Air 11/24/16 06:38 98.3 Orders Complete Blood Count With Diff (11/24/16 07:10) Comprehensive Metabolic Panel (11/24/16 07:10) Lipase (11/24/16 07:10) Urinalysis - C+S If Indicated (11/24/16 07:10) Iv Access Insert/Monitor (11/24/16 07:10) Ecg Monitoring (11/24/16 07:10) Oximetry (11/24/16 07:10) Ondansetron Inj (Zofran Inj) (11/24/16 07:15) Sodium Chlor 0.9% 1000 Ml Inj (Ns 1000 M (11/24/16 07:10) Sodium Chloride 0.9% Flush (Ns Flush) (11/24/16 07:15) Ketorolac Inj (Toradol Inj) (11/24/16 07:15) Ed Urine Pregnancytest Poc (11/24/16 07:10) Bhcg Screen Qualitative (11/24/16 07:11) Ct Abd/Pel W Iv Contrast(Rout) (11/24/16 ) Potassium Chlor 20 Meq Premix (Kcl 20 Me (11/24/16 08:15) Potassium Chloride (Kcl) (11/24/16 08:15) Magnesium Sulfate 1 Gm Premix (Magnesium (11/24/16 08:15) Acetaminophen (Tylenol) (11/24/16 09:00) Labs Laboratory Tests Test 11/24/16 07:15 White Blood Count 14.3 TH/MM3 Red Blood Count 5.47 MIL/MM3 Hemoglobin 17.2 GM/DL Hematocrit 49.7 % Mean Corpuscular Volume 90.8 FL Mean Corpuscular Hemoglobin 31.4 PG Mean Corpuscular Hemoglobin 34.6 % Concent Red Cell Distribution Width 13.4 % Platelet Count 426 TH/MM3 Mean Platelet Volume 8.2 FL Neutrophils (%) (Auto) 81.5 % Lymphocytes (%) (Auto) 13.2 % Monocytes (%) (Auto) 4.2 % Eosinophils (%) (Auto) 0.4 % Basophils (%) (Auto) 0.7 % Neutrophils # (Auto) 11.7 TH/MM3 Lymphocytes # (Auto) 1.9 TH/MM3 Monocytes # (Auto) 0.6 TH/MM3 Eosinophils # (Auto) 0.1 TH/MM3 Basophils # (Auto) 0.1 TH/MM3 CBC Comment DIFF FINAL Differential Comment Sodium Level 131 MEQ/L Potassium Level 2.7 MEQ/L Chloride Level 99 MEQ/L Carbon Dioxide Level 18.8 MEQ/L Anion Gap 13 MEQ/L Blood Urea Nitrogen 20 MG/DL Creatinine 1.18 MG/DL Estimat Glomerular Filtration 51 ML/MIN Rate Random Glucose 211 MG/DL Calcium Level 9.9 MG/DL Total Bilirubin 0.8 MG/DL Aspartate Amino Transf 11 U/L (AST/SGOT) Alanine Aminotransferase 17 U/L (ALT/SGPT) Alkaline Phosphatase 64 U/L Total Protein 8.9 GM/DL Albumin 4.9 GM/DL Lipase 111 U/L Beta HCG, Qualitative LESS THAN 1 MIU/ML MDM Medical Decision Making Medical Screen Exam Complete: Yes Emergency Medical Condition: Yes Differential Diagnosis Ovarian cyst rupture vs. malingering vs. gastroparesis vs. opioid withdrawal Narrative Course 36yo F with chronic pain here with complaint of abdominal pain that feels like her usual pain that is only relieved with dilaudid. Pt given zofran, toradol for pain. Pt is demanding dilaudid and has pain seeking behavior so will not give dilaudid. Labs reviewed, leukocytosis at 14.3 but improved from last visit. H/H elevated. Pt given NS IVF. K is low at 2.7. Pt given 60mEq KCl PO and had 20mEq KCl IV ordered. bHCG negative. Magnesium 1gm IV given since K is low. Pt ripped out her IV and will not finish her evaluation because she is frustrated that she is not getting dilaudid. Explain to her that work up has not been completed. Pt is signing out against medical advice. VS stable. HR has decreased to 92bpm. AMA: The risks of leaving against medical advice without further evaluation treatment were discussed with the patient. These risks include cardiac dysfunction, cardiac dysrhythmia, possible heart attack, possible stroke or . The patient indicated understanding of these risks and appeared to have the capacity to make this decision. Diagnosis Primary Impression: Chronic abdominal pain Patient Instructions: General Instructions Departure Forms: Tests/Procedures Additional Instructions: Please return to the ED if you change your mind. Please follow up with PMD for chronic abdominal pain. Med/Other Pt SpecificInfo: No Change to Meds Disposition: 07 AGAINST MEDICAL ADVICE Condition: Stable Shana Granger Nov 24, 2016 07:17
[2016-11-24 07:36] LABS: AUTOMATED NEUTROPHIL # 11.7 TH/MM3 (1.8-7.7); BASOPHIL # 0.1 TH/MM3 (0-0.2); BASOPHIL % 0.7 % (0.0-2.0); EOSINOPHIL # 0.1 TH/MM3 (0-0.4); EOSINOPHIL % 0.4 % (0.0-4.0); HEMATOCRIT 49.7 % (35.0-46.0); HEMO FLAGS DIFF FINAL; LYMPH % 13.2 % (9.0-44.0); LYMPHOCYTE # 1.9 TH/MM3 (1.0-4.8); MEAN CELL VOLUME 90.8 FL (80.0-100.0); MEAN CORPUSCULAR HEMOGLOBIN 31.4 PG (27.0-34.0); MEAN CORPUSCULAR HGB CONC 34.6 % (32.0-36.0); MONO % 4.2 % (0.0-8.0); NEUT % 81.5 % (16.0-70.0); PLATELET COUNT 426 TH/MM3 (150-450); RED BLOOD COUNT 5.47 MIL/MM3 (4.00-5.30); RED CELL DISTRIBUTION WIDTH 13.4 % (11.6-17.2); WHITE BLOOD COUNT 14.3 TH/MM3 (4.0-11.0)
[2016-11-24 08:00] VITALS: BP 136/72; PULSE 92; RESP 16; O2SAT 98
[2016-11-24 08:09] LABS: ALKALINE PHOSPHATASE 64 U/L (45-117); ALT (GPT) 17 U/L (10-53); ANION GAP 13 MEQ/L (5-15); AST (GOT) 11 U/L (15-37); BICARBONATE 18.8 MEQ/L (21.0-32.0); BLOOD UREA NITROGEN 20 MG/DL (7-18); CHLORIDE 99 MEQ/L (98-107); GLOMERULAR FILTRATION RATE 51 ML/MIN (>89); SODIUM (NA) 131 MEQ/L (136-145); TOTAL BILIRUBIN ADULT 0.8 MG/DL (0.2-1.0)
[2016-11-24 08:15] LABS: POTASSIUM 2.7 MEQ/L (3.5-5.1)
[2016-11-24] MEDS ORDERED: MAGNESIUM SULFATE 1 GM PREMIX 100 ML IV ONE (08:15)
[2016-11-24] MEDS ORDERED: POTASSIUM CHLOR 20 MEQ PREMIX 100 ML IV ONE (08:15)
[2016-11-24] MEDS ORDERED: POTASSIUM CHLORIDE 20 MEQ CONTROLLED RELEASE TAB PO ONE (08:15)
[2016-11-24] MEDS ORDERED: ACETAMINOPHEN 325 MG TAB PO ONE (09:00)
[2016-11-24 09:16] VITALS: RESP 16
== END 2016-11-24 09:15 | disposition left against medical advice (07) ==
LOC: NEPC 06:29
DX: R10.9 Unspecified abdominal pain (principal); G89.29 Other chronic pain
CPT/HCPCS: 80053; 83690; 84703; 85025; 96361; 96365; 96375; 99284; J1885; J2405; J3475; J3480; J7030

== ENCOUNTER 2016-12-21 06:46 | Emergency (ER) | payer MEDICAID ==
[~2016-12-21] VITALS: Ht 160 cm; Wt 46.0 kg
[2016-12-21 06:53] VITALS: BP 140/101; PULSE 107; RESP 18; TEMP 98.3; O2SAT 100
[2016-12-21] MEDS ORDERED: SODIUM CHLOR 0.9% 1000 ML INJ 1,000 ML IV SCH (07:58)
[2016-12-21] MEDS ORDERED: SODIUM CHLORIDE 0.9% FLUSH 10 ML FLUSH IV FLUSH PRN (08:00)
[2016-12-21] MEDS ORDERED: PROCHLORPERAZINE INJ 10 MG/2 ML VIAL IV PUSH ONE (08:00)
[2016-12-21] MEDS ORDERED: KETOROLAC TROMETHAMINE 30 MG/ML (IVP) VIAL IVP ONE (08:00)
[2016-12-21] MEDS ORDERED: diphenhydrAMINE HCL 50 MG/ML VIAL IV PUSH ONE (08:00)
--- NOTE | 2016-12-21 08:06 | PD ---
HPI . Abdominal and back pain Chief Complaint: GI Complaint Time Seen by Provider: 07:52 Travel History International Travel<30 days: No Contact w/Intl Traveler<30days: No Traveled to known affect area: No History of Present Illness HPI Patient presents complaining with chronic abdominal and back pain. She reports a history of endometriosis and hurts all the time. He states her symptoms have been worse for the last couple of weeks. She reports nausea, vomiting, poor appetite area she denies fever. She denies urinary tract symptoms. She does admit to decreased urinary output. She reports no exacerbating or relieving factors. She states that she is currently on Provera oncologist and states that she is worse rather than better. [id number]: Diffuse abdomen and back SEVERITY: Severe DURATION: Chronic TIMING: Worse 2 weeks CONTEXT: History of endometriosis MODIFYING FACTORS: Exacerbated by Provera. No relieving factors ASSOCIATED SYMPTOMS: Nausea and vomiting PFSH Past Medical History Hx Anticoagulant Therapy: No Arthritis: No Asthma: No Autoimmune Disease: No Blood Disorders: No Anxiety: No Depression: No Heart Rhythm Problems: No Cancer: No Cardiovascular Problems: No High Cholesterol: No Chemotherapy: No Chest Pain: No Congestive Heart Failure: No COPD: No Cerebrovascular Accident: No Diabetes: No Diminished Hearing: No Endocrine: No Gastrointestinal Disorders: Yes (GASTROPARESIS) GERD: Yes Glaucoma: No Genitourinary: No Headaches: No Hepatitis: No Hiatal Hernia: Yes Hypertension: No Immune Disorder: No Implanted Vascular Access Dvce: No Kidney Stones: No Musculoskeletal: No Neurologic: Yes Psychiatric: No Reproductive: Yes (ENDIOMETRESIS) Respiratory: No Immunizations Current: No Migraines: No Myocardial Infarction: No Radiation Therapy: No Seizures: No Sickle Cell Disease: No Sleep Apnea: No Thyroid Disease: No Ulcer: Yes Influenza Vaccination: No ?: Not : 3 Para: 2 Miscarriage: 0 : 1 Ovarian Cysts: Yes Past Surgical History Abdominal Surgery: Yes (EXP LAP) AICD: No Appendectomy: No Arteriovenous Shunt: No Cardiac Surgery: No Section: Yes Cholecystectomy: No Ear Surgery: No Endocrine Surgery: No Eye Surgery: No Genitourinary Surgery: Yes Gynecologic Surgery: Yes Insulin Pump: No Joint Replacement: No Neurologic Surgery: Yes Oral Surgery: No Pacemaker: No Thoracic Surgery: No Tonsillectomy: Yes Other Surgery: Yes (colon polyp rempoval) Social History Alcohol Use: No Tobacco Use: Yes (1PPD) Substance Use: Yes (marijuana-LAST NIGHT) Allergies-Medications (Allergen,Severity, Reaction): Coded Allergies: Amoxicillin (Verified Allergy, Severe, VOMITING, 12/21/16) Morphine (Verified Allergy, Severe, Hives , 12/21/16) Penicillin (Verified Allergy, Severe, VOMITING, 12/21/16) Sulfa (Verified Adverse Reaction, Severe, VOMITING, 12/21/16) Reported Meds & Prescriptions Reported Meds & Active Scripts Active Reported Provera (Medroxyprogesterone Acetate) 2.5 Mg Tab 2.5 Mg PO DAILY Start day 21 Review of Systems Except as stated in HPI: all other systems reviewed are Neg General / Constitutional: No: Fever, Chills Gastrointestinal: Positive: Nausea, Vomiting, Abdominal Pain, No: Diarrhea Genitourinary: Positive: Decreased Urinary Output, No: Urgency, Frequency, Dysuria Psychiatric: Positive: Anxiety Physical Exam Narrative GENERAL: This is a very thin woman who is writhing on the bed and whining. SKIN: Warm and dry. HEAD: Atraumatic. Normocephalic. EYES: Pupils equal and round. ENT: No nasal bleeding or discharge. Mucous membranes pink and moist. NECK: Trachea midline. Neck supple. CARDIOVASCULAR: Regular rate and rhythm. Heart sounds normal. RESPIRATORY: No accessory muscle use. Lungs clear with full air movement throughout. GASTROINTESTINAL: Abdomen soft, non-tender, nondistended. MUSCULOSKELETAL: No obvious deformities. No edema. NEUROLOGICAL: Awake and alert. No obvious cranial nerve deficits. Motor grossly within normal limits. Normal speech. PSYCHIATRIC: Appropriate mood and affect; insight and judgment normal. Data Data Last Documented VS Vital Signs Date Time Temp Pulse Resp B/P Pulse Ox O2 Delivery O2 Flow Rate FiO2 12/21/16 06:53 98.3 107 18 140/101 100 Orders Basic Metabolic Panel (Bmp) (12/21/16 07:58) Complete Blood Count With Diff (12/21/16 07:58) Urinalysis - C+S If Indicated (12/21/16 07:58) Iv Access Insert/Monitor (12/21/16 07:58) Sodium Chlor 0.9% 1000 Ml Inj (Ns 1000 M (12/21/16 07:58) Sodium Chloride 0.9% Flush (Ns Flush) (12/21/16 08:00) Ketorolac Inj (Toradol Inj) (12/21/16 08:00) Ed Urine Pregnancytest Poc (12/21/16 07:58) Prochlorperazine Inj (Compazine Inj) (12/21/16 08:00) Diphenhydramine Inj (Benadryl Inj) (12/21/16 08:00) [facility] Medical Decision Making Medical Screen Exam Complete: Yes Emergency Medical Condition: Yes Medical Record Reviewed: Yes (patient has a history of multiple previous visits to the emergency department for similar symptoms. She has been previously labeled as drug-seeking behavior. She reportedly demand Dilaudid and attempt intimidation of the physician. She has left from here several times AMA when Dilaudid has been refused.) Differential Diagnosis Differential diagnosis of abdominal pain includes but is not limited to gastritis, pancreatitis, hepatitis, gastroenteritis, gallbladder disease, constipation, urinary retention, UTI, peptic ulcer disease, diverticulitis or appendicitis Narrative Course Patient presents with chronic abdominal and back pain secondary to endometriosis. She actually has the appearance of a drug user. She is very thin and malnourished appearing. We did weigh her and she has not lost any weight since the last time that she was here. I will give her some IV fluids and check some basic labs. I have ordered Toradol, Compazine and Benadryl for her symptoms. I do not plan to give her any narcotics. 9:25 AM The patient requested to see me regarding her pain management. I found her standing in the room doubled over. She was requesting Dilaudid. I explained to the patient that Dilaudid was not clinically indicated or her problem. 550 time that I return to the desk, the patient had pulled out her IV and walked out of the department standing straight up walking very briskly. Diagnosis Primary Impression: Chronic abdominal pain Disposition: AGAINST MEDICAL ADVICE Condition: Stable Tiffanie Britt MD Dec 21, 2016 08:05
== END 2016-12-21 09:25 | disposition left against medical advice (07) ==
LOC: PHED 06:46
DX: R10.9 Unspecified abdominal pain (principal); G89.29 Other chronic pain; N80.9 Endometriosis, unspecified; R11.2 Nausea with vomiting, unspecified
CPT/HCPCS: 96374; 96375; 99284; J0780; J1200; J1885; J7030

== ENCOUNTER 2016-12-23 08:09 | Observation (INO) | payer MEDICAID ==
[2016-12-23] VITALS (8 sets, daily range): BP systolic 105–136; BP diastolic 65–98; PULSE 51–112; RESP 14–20; TEMP 97.6–98.2; O2SAT 97–100
[2016-12-23] MEDS ORDERED: SODIUM CHLOR 0.9% 1000 ML INJ 1,000 ML IV SCH ×2 (08:29→13:16)
[2016-12-23] MEDS ORDERED: HYDROmorphone HCL PF 1 MG/ML VIAL IV PUSH ONE (08:30)
[2016-12-23] MEDS ORDERED: ONDANSETRON HCL 4 MG/2 ML VIAL IV PUSH ONE (08:30)
[2016-12-23] MEDS ORDERED: SODIUM CHLORIDE 0.9% FLUSH 10 ML FLUSH IV FLUSH PRN ×2 (08:30→13:30)
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
[2016-12-23 09:01] LABS: AUTOMATED NEUTROPHIL # 9.1 TH/MM3 (1.8-7.7); BASOPHIL # 0.1 TH/MM3 (0-0.2); BASOPHIL % 0.6 % (0.0-2.0); EOSINOPHIL % 0.1 % (0.0-4.0); HEMATOCRIT 48.6 % (35.0-46.0); HEMO FLAGS DIFF FINAL; LYMPH % 13.5 % (9.0-44.0); LYMPHOCYTE # 1.5 TH/MM3 (1.0-4.8); MEAN CELL VOLUME 90.9 FL (80.0-100.0); MEAN CORPUSCULAR HGB CONC 35.2 % (32.0-36.0); MONO % 4.7 % (0.0-8.0); NEUT % 81.1 % (16.0-70.0); PLATELET COUNT 405 TH/MM3 (150-450); RED BLOOD COUNT 5.34 MIL/MM3 (4.00-5.30); RED CELL DISTRIBUTION WIDTH 13.6 % (11.6-17.2); WHITE BLOOD COUNT 11.2 TH/MM3 (4.0-11.0)
[2016-12-23 09:11] LABS: APTT (PATIENT) 27.5 SEC (24.3-30.1); BLOOD, URINE SMALL (NEG); COMMENT (UR) CATH-CULT NOT IND; CULTURE IF INDICATED CATH CULTURE NOT IND; GLUCOSE,URINE 300 mg/dL (NEG); HYALINE CAST, URINE 58 /lpf (RARE); KETONE, URINE TRACE mg/dL (NEG); MUCUS URINE MANY /lpf (OCC); NITRITE,URINE NEG (NEG); PROTHROMBIN TIME - PATIENT 10.9 SEC (9.8-11.6); SQUAMOUS EPITHELIAL CELL URINE 2 /hpf (0-5); URINE COLOR YELLOW (YELLW/STRAW)
[2016-12-23 09:46] LABS: ANION GAP 15 MEQ/L (5-15)
[2016-12-23 09:47] LABS: ALKALINE PHOSPHATASE 70 U/L (45-117); ALT (GPT) 16 U/L (10-53); AST (GOT) 11 U/L (15-37); BICARBONATE 23.5 MEQ/L (21.0-32.0); BLOOD UREA NITROGEN 24 MG/DL (7-18); CHLORIDE 92 MEQ/L (98-107); GLOMERULAR FILTRATION RATE 40 ML/MIN (>89); SODIUM (NA) 130 MEQ/L (136-145); TOTAL BILIRUBIN ADULT 0.7 MG/DL (0.2-1.0)
[2016-12-23 09:48] LABS: POTASSIUM 2.4 MEQ/L (3.5-5.1)
[2016-12-23] MEDS: POTASSIUM CHLOR 20 MEQ PREMIX 100 ML IV SCH ×2 (09:58→12:24)
--- NOTE | 2016-12-23 10:48 | RADRPT ---
EXAM DATE/TIME: 12/23/2016 09:41 [facility] COMPARISON: CT ABDOMEN & PELVIS W/O CONTRAST, March 09, 2016, 8:34. INDICATIONS : Bilateral flank pain, nausea, vomiting. ORAL CONTRAST: No oral contrast ingested. RADIATION DOSE: 13.28 CTDIvol (mGy) MEDICAL HISTORY : Hernia, hiatal. Gastroparesis. Endometriosis. SURGICAL HISTORY : Uterine ablation. ENCOUNTER: Initial ACUITY: 4 - 6 days PAIN SCALE: 4/10 LOCATION: Bilateral flank TECHNIQUE: Volumetric scanning of the abdomen and pelvis was performed. Using automated exposure control and adjustment of the mA and/or kV according to patient size, radiation dose was kept as low as reasonably achievable to obtain optimal diagnostic quality images. FINDINGS: The lung bases are clear. Liver, spleen, pancreas and adrenal glands are unremarkable. There is no evidence for a renal stone. In the pelvis, there is a 2.6 cm cystic mass in the right adnexal region. Phleboliths are present in the pelvis. There is no adenopathy. Bowel gas pattern is remarkable only for air throughout the colon. CONCLUSION: 1. There is no evidence for obstructing stone. 2. Cystic mass in the right adnexal region as described above. 3. There is no free fluid. Ascencion Quiroga MD FACR on December 23, 2016 at 10:33 Board Certified Radiologist. This report was verified electronically.
[2016-12-23 11:01] LABS: AMPHETAMINE, URINE NEG (NEG); BARBITURATES, URINE NEG (NEG); COCAINE, URINE NEG (NEG)
[2016-12-23] MEDS ORDERED: METOCLOPRAMIDE HCL 10 MG/2 ML VIAL IV PUSH PRN (13:30)
[2016-12-23] MEDS ORDERED: ACETAMINOPHEN 325 MG TAB PO PRN ×2 (13:30)
[2016-12-23] MEDS ORDERED: SENNOSIDES 8.6 MG TAB PO PRN (14:00)
[2016-12-23] MEDS: HYDROmorphone HCL PF 1 MG/ML VIAL IV PRN ×2 (14:10→18:35)
[2016-12-23] MEDS: DOCUSATE SODIUM 100 MG CAP PO SCH ×2 (14:13→21:17)
[2016-12-23] MEDS: INSULIN ASPART SUPPLEMENTAL SCALE SQ SCH ×2 (16:00→21:00)
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
[2016-12-23] MEDS: ONDANSETRON HCL 4 MG/2 ML VIAL IVP PRN (16:28)
[2016-12-23] MEDS: NS + KCL 40 MEQ INJ 1,000 ML IV SCH (16:39)
[2016-12-23] MEDS ORDERED: PANTOPRAZOLE SODIUM 40 MG VIAL IV PUSH SCH (17:00)
[2016-12-23] MEDS: METOCLOPRAMIDE HCL 10 MG/2 ML VIAL IV PUSH SCH (17:00)
[2016-12-23 18:13] LABS: BICARBONATE 26.6 MEQ/L (21.0-32.0); MAGNESIUM 2.2 MG/DL (1.5-2.5)
[2016-12-23 18:18] LABS: POTASSIUM 2.5 MEQ/L (3.5-5.1)
[2016-12-23] MEDS ORDERED: POTASSIUM CHLORIDE 20 MEQ CONTROLLED RELEASE TAB PO ONE (18:30)
[2016-12-23] MEDS: POTASSIUM CHLOR 10 MEQ PREMIX 100 ML IV SCH ×2 (18:53→23:43)
[2016-12-23] MEDS: SODIUM CHLORIDE 0.9% FLUSH 10 ML FLUSH IV FLUSH SCH (21:00)
[2016-12-24 00:14] VITALS: BP 102/55; PULSE 52; RESP 20; TEMP 97.7; O2SAT 98
[2016-12-24] MEDS: ONDANSETRON HCL 4 MG/2 ML VIAL IVP PRN (01:03)
[2016-12-24] MEDS: HYDROmorphone HCL PF 1 MG/ML VIAL IV PRN ×2 (01:04→08:18)
[2016-12-24] MEDS: NS + KCL 40 MEQ INJ 1,000 ML IV SCH (03:21)
[2016-12-24] MEDS: POTASSIUM CHLOR 10 MEQ PREMIX 100 ML IV SCH (03:22)
[2016-12-24 03:33] VITALS: BP 107/57; PULSE 50; RESP 20; TEMP 97.5; O2SAT 99
[2016-12-24] MEDS: INSULIN ASPART SUPPLEMENTAL SCALE SQ SCH ×2 (05:37→10:53)
[2016-12-24 07:01] VITALS: BP 105/65; PULSE 50; RESP 20; TEMP 98; O2SAT 99
[2016-12-24 07:34] LABS: AUTOMATED NEUTROPHIL # 3.6 TH/MM3 (1.8-7.7); BASOPHIL % 0.3 % (0.0-2.0); EOSINOPHIL # 0.2 TH/MM3 (0-0.4); EOSINOPHIL % 2.3 % (0.0-4.0); HEMO FLAGS DIFF FINAL; LYMPH % 40.4 % (9.0-44.0); LYMPHOCYTE # 3.1 TH/MM3 (1.0-4.8); MEAN CORPUSCULAR HGB CONC 35.5 % (32.0-36.0); MONO % 9.4 % (0.0-8.0); NEUT % 47.6 % (16.0-70.0); PLATELET COUNT 236 TH/MM3 (150-450); RED BLOOD COUNT 3.78 MIL/MM3 (4.00-5.30); RED CELL DISTRIBUTION WIDTH 13.3 % (11.6-17.2); WHITE BLOOD COUNT 7.6 TH/MM3 (4.0-11.0)
[2016-12-24 07:37] LABS: ALKALINE PHOSPHATASE 48 U/L (45-117); ALT (GPT) 12 U/L (10-53); ANION GAP 9 MEQ/L (5-15); AST (GOT) 16 U/L (15-37); BICARBONATE 20.4 MEQ/L (21.0-32.0); CHLORIDE 108 MEQ/L (98-107); GLOMERULAR FILTRATION RATE 124 ML/MIN (>89); SODIUM (NA) 137 MEQ/L (136-145); TOTAL BILIRUBIN ADULT 0.3 MG/DL (0.2-1.0)
[2016-12-24 07:38] LABS: BLOOD UREA NITROGEN 11 MG/DL (7-18)
[2016-12-24 07:39] LABS: POTASSIUM 5.6 MEQ/L (3.5-5.1)
[2016-12-24 08:00] VITALS: PULSE 50
[2016-12-24] MEDS ORDERED: POTASSIUM PHOSPHATE MONOBASIC 500 MG TAB PO ONE ×2 (08:00→12:45)
[2016-12-24] MEDS ORDERED: SODIUM CHLOR 0.9% 1000 ML INJ 1,000 ML IV SCH (08:15)
[2016-12-24] MEDS: DOCUSATE SODIUM 100 MG CAP PO SCH (08:17)
[2016-12-24] MEDS: SODIUM CHLORIDE 0.9% FLUSH 10 ML FLUSH IV FLUSH SCH (08:18)
[2016-12-24] MEDS: METOCLOPRAMIDE HCL 10 MG/2 ML VIAL IV PUSH SCH ×2 (08:18→12:00)
--- NOTE | 2016-12-24 10:39 | HHI.PR ---
Subjective Remarks Follow-up for abdominal pain. Feels much better today. Patient still has some abdominal discomfort, states it is significantly improved. Reports abdominal pain is generalized. She's had no nausea or vomiting and is tolerating full diet. Ambulating. Objective Vitals Vital Signs Date Time Temp Pulse Resp B/P Pulse Ox O2 Delivery O2 Flow Rate FiO2 12/24/16 08:00 50 12/24/16 07:01 98.0 50 20 105/65 99 12/24/16 03:33 97.5 50 20 107/57 99 12/24/16 00:14 97.7 52 20 102/55 98 12/23/16 20:00 60 12/23/16 19:14 97.6 60 20 105/67 98 12/23/16 15:52 98.2 64 20 133/85 100 12/23/16 15:36 51 12/23/16 14:52 58 18 136/72 99 12/23/16 12:25 60 16 126/70 97 Room Air I/O 12/23/16 12/23/16 12/23/16 12/24/16 12/24/16 12/24/16 07:00 15:00 23:00 07:00 15:00 23:00 Intake Total 1655 ml Balance 1655 ml Intake IV Total 1655 ml # Voids 1 3 Result Diagram: 12/24/16 0513 12/24/16 0513 Imaging Last Impressions Abdomen/Pelvis CT 12/23/16 0000 Signed Impressions: Service Date/Time: Friday, December 23, 2016 09:41 - CONCLUSION: 1. There is no evidence for obstructing stone. 2. Cystic mass in the right adnexal region as described above. 3. There is no free fluid. Ascencion Quiroga MD FACR Objective Remarks GENERAL: Well-developed well-nourished. In no acute distress. SKIN: Warm and dry. Dark discoloration of lower back with evidence of livedo reticularis. HEENT: Normocephalic. Pupils equal and round. Mucous membranes pink and moist. CARDIOVASCULAR: Regular rate and rhythm. No murmur appreciated. RESPIRATORY: No accessory muscle use. Clear to auscultation. Breath sounds equal bilaterally. GASTROINTESTINAL: Abdomen soft, non-tender, nondistended. Bowel sounds x4. MUSCULOSKELETAL: No obvious deformities. No clubbing or cyanosis. No edema. NEUROLOGICAL: Awake and alert. No focal neurological deficits. Moves upper and lower extremities spontaneously. Normal speech. PSYCHIATRIC: Appropriate mood and affect; insight and judgment normal. A/P Assessment and Plan 36-year-old female with past medical history endometriosis, IBS, gastroparesis, cyclic vomiting, and ovarian cyst presents with abdominal pain Cyclic vomiting/centimeters/abdominal pain: Acute on chronic. Abdominal CT shows right adnexal cystic mass, otherwise no acute process. May be secondary to diabetic gastroparesis vs endometriosis. Antiemetics as needed with Reglan scheduled. IVF. IV PPI. Oral and intravenous narcotics as needed for pain. Diet as tolerated, added ensure. Hysterectomy at [facility] as scheduled. Acute kidney injury: Creatinine 1.47. Baseline is less than 1. UA with proteinuria, glucosuria, ketonuria, urobilinogen. IVF. Urine sodium and creatinine reviewed. Follow-up BMP after IVF shows creatinine trending down to 0.55. Resolved. Hypokalemia: Potassium 2.4 on hemolyzed sample. From decreased intake and vomiting. Repeat potassium 2.5. Given additional IV potassium bolus as well as maintenance. Magnesium within normal limits. Repeat potassium level this morning 5.6 on hemolyzed sample, will recheck. Hold additional supplementation for now. Hyperglycemia: Previous hemoglobin A1c was 5.0 on 06/13/16. Blood glucose 237 hemolyzed blood sample, repeat 107. UA with glycosuria and proteinuria. Following Accu-Cheks and covering with sliding scale insulin, has not required any insulin. Hemoglobin A1c pending. Hyperpigmented rash: May be secondary to autoimmune process. Outpt follow-up. Hypophosphatemia: Replace with potassium phosphorus if potassium within normal limits. DVT prophylaxis: SCDs Discharge Planning Follow-up repeat potassium level, if improved, possible discharge later today with pain medication and plans for outpatient follow-up. Lenard Shay Dec 24, 2016 10:39
[2016-12-24 10:51] VITALS: BP 100/57; PULSE 55; RESP 18; TEMP 98; O2SAT 100
[2016-12-24] MEDS ORDERED: OXYC-392 PO (12:44)
[2016-12-24] MEDS ORDERED: POTA-163 PO (12:44)
[2016-12-24] MEDS ORDERED: PANT40TA3 PO (12:44)
[2016-12-24] MEDS ORDERED: K-PHTAB PO (12:45)
--- NOTE | 2016-12-24 12:46 | HHI.DCPOC ---
Discharge Care Plan Diagnosis: (1) Endometriosis (2) Hypokalemia (3) Gastroparesis (4) Nausea & vomiting (5) Abdominal pain (6) Adnexal mass Goals to Promote Your Health * To prevent worsening of your condition and complications * To maintain your health at the optimal level Directions to Meet Your Goals Take your medications as prescribed Follow your dietary instruction Follow activity as directed Keep your appointments as scheduled Take your immunizations and boosters as scheduled If your symptoms worsen call your PCP, if no PCP go to Urgent Care Center or Emergency Room Smoking is Dangerous to Your Health. Avoid second hand smoke Call the 24-hour hour crisis hotline for domestic abuse at Kenny Barnard DO Dec 24, 2016 12:46
--- NOTE | 2016-12-24 12:51 | HHI.DS ---
Discharge Summary Admission Date Dec 23, 2016 at 11:29 Discharge Date: Dec 24, 2016 Admitting Diagnosis hypokalemia, nausea and vomiting, abdominal pain (1) Endometriosis ICD Code: N80.9 (2) Hypokalemia ICD Code: E87.6 (3) Nausea & vomiting ICD Code: R11.2 (4) Gastroparesis ICD Code: K31.84 Procedures None Brief History - From Admission 36-year-old female with past medical history endometriosis, IBS, gastroparesis, cyclic vomiting, and ovarian cyst presents with abdominal pain. The patient states that once a month she gets the symptoms of abdominal pain and intractable vomiting. The symptoms has been present since Sunday. She no longer has a period because she had an endometrial ablation. She locates the abdominal pain worse in her suprapubic area and in her right lower back. She also has some epigastric discomfort as well. She has an area keep down any solid food, has been tolerating fluids and some broth. She denies any hematemesis. She denies any diarrhea, constipation, dysuria, fever, shortness breath, chest pain. Ambulating with no difficulties, although she feels like her legs are heavy. She states she's been told that her symptoms are related to endometriosis, and the plan is to follow up with [facility] next week for hysterectomy. CBC/BMP: 12/24/16 0513 12/24/16 1031 Significant Findings Laboratory Tests Test 12/23/16 12/23/16 12/23/16 12/24/16 08:40 09:15 17:13 05:13 White Blood Count 11.2 TH/MM3 (4.0-11.0) Red Blood Count 5.34 MIL/MM3 3.78 MIL/MM3 (4.00-5.30) (4.00-5.30) Hemoglobin 17.1 GM/DL (11.6-15.3) Hematocrit 48.6 % 34.0 % (35.0-46.0) (35.0-46.0) Neutrophils (%) (Auto) 81.1 % (16.0-70.0) Neutrophils # (Auto) 9.1 TH/MM3 (1.8-7.7) Urine Turbidity HAZY (CLEAR) Urine Protein 300 mg/dL (NEG-TRACE) Urine Glucose (UA) 300 mg/dL (NEG) Urine Ketones TRACE mg/dL (NEG) Urine Occult Blood SMALL (NEG) Urine Urobilinogen 4.0 MG/DL (LESS THAN 2.0) Urine Mucus MANY /lpf (OCC) Urine Cannabinoids Screen POS (NEG) Sodium Level 130 MEQ/L 133 MEQ/L (136-145) (136-145) Potassium Level 2.4 MEQ/L 2.5 MEQ/L 5.6 MEQ/L (3.5-5.1) (3.5-5.1) (3.5-5.1) Chloride Level 92 MEQ/L 97 MEQ/L 108 MEQ/L (98-107) (98-107) (98-107) Blood Urea Nitrogen 24 MG/DL (7-18) Creatinine 1.47 MG/DL (0.50-1.00) Estimat Glomerular Filtration 40 ML/MIN (>89) 66 ML/MIN (>89) Rate Random Glucose 237 MG/DL 107 MG/DL (74-106) (74-106) Calcium Level 10.5 MG/DL 7.9 MG/DL (8.5-10.1) (8.5-10.1) Magnesium Level 2.7 MG/DL (1.5-2.5) Aspartate Amino Transf 11 U/L (15-37) (AST/SGOT) Total Protein 9.2 GM/DL 5.4 GM/DL (6.4-8.2) (6.4-8.2) Albumin 5.1 GM/DL 3.2 GM/DL (3.4-5.0) (3.4-5.0) Phosphorus Level 1.6 MG/DL (2.5-4.9) Monocytes (%) (Auto) 9.4 % (0.0-8.0) Carbon Dioxide Level 20.4 MEQ/L (21.0-32.0) Imaging Last Impressions Abdomen/Pelvis CT 12/23/16 0000 Signed Impressions: Service Date/Time: Friday, December 23, 2016 09:41 - CONCLUSION: 1. There is no evidence for obstructing stone. 2. Cystic mass in the right adnexal region as described above. 3. There is no free fluid. Ascencion Quiroga MD FACR PE at Discharge GENERAL: Well-developed well-nourished. In no acute distress. SKIN: Warm and dry. Dark discoloration of lower back with evidence of livedo reticularis. HEENT: Normocephalic. Pupils equal and round. Mucous membranes pink and moist. CARDIOVASCULAR: Regular rate and rhythm. No murmur appreciated. RESPIRATORY: No accessory muscle use. Clear to auscultation. Breath sounds equal bilaterally. GASTROINTESTINAL: Abdomen soft, non-tender, nondistended. Bowel sounds x4. MUSCULOSKELETAL: No obvious deformities. No clubbing or cyanosis. No edema. NEUROLOGICAL: Awake and alert. No focal neurological deficits. Moves upper and lower extremities spontaneously. Normal speech. PSYCHIATRIC: Appropriate mood and affect; insight and judgment normal. Hospital Course 36-year-old female with past medical history endometriosis, IBS, gastroparesis, cyclic vomiting, and ovarian cyst presents with abdominal pain Cyclic vomiting/centimeters/abdominal pain: Acute on chronic. Abdominal CT shows right adnexal cystic mass, otherwise no acute process. May be secondary to diabetic gastroparesis vs endometriosis. Antiemetics as needed with Reglan scheduled. IVF. IV PPI. Oral and intravenous narcotics as needed for pain. Diet as tolerated, added ensure. Hysterectomy at [facility] as scheduled. D/c on PPI and oxycodone. Low residue diet. Acute kidney injury: Creatinine 1.47. Baseline is less than 1. UA with proteinuria, glucosuria, ketonuria, urobilinogen. IVF. Urine sodium and creatinine reviewed. Follow-up BMP after IVF shows creatinine trending down to 0.55. Resolved. Hypokalemia/ Hypophosphatemia: Potassium 2.4 on hemolyzed sample. From decreased intake and vomiting. Repeat potassium 2.5. Given additional IV potassium bolus as well as maintenance. Magnesium within normal limits. Repeat potassium level this morning 5.6 on hemolyzed sample, will recheck. Hold additional supplementation for now. Repeat within normal limits. Pt will be discharged on potassium and phosphorous supplements. Hyperglycemia: Previous hemoglobin A1c was 5.0 on 06/13/16. Blood glucose 237 hemolyzed blood sample, repeat 107. UA with glycosuria and proteinuria. Following Accu-Cheks and covering with sliding scale insulin, has not required any insulin. Hemoglobin A1c normal. Outpt follow-up with PCP for glycosuria and proteinuria. Hyperpigmented rash: May be secondary to autoimmune process. Outpt follow-up. DVT prophylaxis: SCDs Pt Condition on Discharge: Good Discharge Disposition: Discharge Home Discharge Time: <= 30 minutes Discharge Instructions DIET: Follow Instructions for: Low Residue Diet Activities you can perform: Regular-No Restrictions Follow up Referrals: [facility] PCP Follow-up - 1 Week New Orders: BASIC METABOLIC PROF - 3-5 Days New Medications: Pantoprazole (Pantoprazole) 40 Mg Tab 40 MG PO DAILY Reflux #30 Ref 0 TAB Potassium Chloride ER (Potassium Chloride ER) 20 Meq Tab 20 MEQ PO DAILY Electrolyte Replacement #7 Ref 0 TAB Potassium Phosphate Monobasic (K-Phos) 500 Mg Tab 500 MG PO PCHS Electrolyte Replacement #30 Ref 0 TAB Oxycodone (Oxycodone) 5 Mg Tab 5 MG PO Q4H PRN pain #24 TAB Continued Medications: Medroxyprogesterone Acetate (Provera) 2.5 Mg Tab 2.5 MG PO DAILY Start day 21 Uterine bleeding #5 TAB Kenny Barnard DO Dec 24, 2016 12:51
== END 2016-12-24 13:45 | disposition home or self-care (01) ==
LOC: NEPC 08:09 → NEDA 11:29 → NEPHCDU 15:09
PROVIDERS: ADMIT Hospitalist; ATTEND Hospitalist
DX: G43.A0 Cyclical vomiting, in migraine, not intractable (principal); K31.84 Gastroparesis; N80.9 Endometriosis, unspecified; E83.39 Other disorders of phosphorus metabolism; K58.9 Irritable bowel syndrome, unspecified; N17.9 Acute kidney failure, unspecified; E87.6 Hypokalemia; R73.9 Hyperglycemia, unspecified; R21 Rash and other nonspecific skin eruption; K21.9 Gastro-esophageal reflux disease without esophagitis; F17.200 Nicotine dependence, unspecified, uncomplicated; Z88.1 Allergy status to other antibiotic agents; Z88.5 Allergy status to narcotic agent; Z88.0 Allergy status to penicillin; Z88.2 Allergy status to sulfonamides
CPT/HCPCS: 74176; 80048; 80053; 80307; 81001; 82570; 82948; 83036; 83690; 83735; 84100; 84132; 84300; 85025; 85610; 85730; 96361; 96374; 96375; 99285; C9113; G0378; J1170; J2405; J2765; J3480; J7030

== ENCOUNTER 2017-02-13 16:41 | Emergency (ER) | payer MEDICAID ==
[~2017-02-13] VITALS: Ht 160 cm; Wt 48.0 kg
[~2017-02-13 16:41] MED LIST changes: +K-PHTAB PO; +OXYC-392 PO; +PANT40TA3 PO; +POTA-163 PO
[2017-02-13 16:43] VITALS: BP 125/84; PULSE 108; RESP 16; TEMP 98; O2SAT 98
[2017-02-13] MEDS ORDERED: SODIUM CHLORIDE 0.9% FLUSH 10 ML FLUSH IV FLUSH PRN (17:45)
[2017-02-13] MEDS ORDERED: KETOROLAC TROMETHAMINE 30 MG/ML (IVP) VIAL IVP ONE (17:45)
[2017-02-13] MEDS ORDERED: ONDANSETRON HCL 4 MG/2 ML VIAL IVP ONE (17:45)
[2017-02-13 18:07] LABS: BASOPHIL # 0.2 TH/MM3 (0-0.2); BASOPHIL % 1.4 % (0.0-2.0); EOSINOPHIL # 0.1 TH/MM3 (0-0.4); EOSINOPHIL % 0.6 % (0.0-4.0); HEMATOCRIT 50.7 % (35.0-46.0); HEMO FLAGS DIFF FINAL; LYMPH % 18.7 % (9.0-44.0); LYMPHOCYTE # 2.3 TH/MM3 (1.0-4.8); MEAN CORPUSCULAR HEMOGLOBIN 31.1 PG (27.0-34.0); MEAN CORPUSCULAR HGB CONC 33.5 % (32.0-36.0); NEUT % 73.3 % (16.0-70.0); PLATELET COUNT 345 TH/MM3 (150-450); RED BLOOD COUNT 5.45 MIL/MM3 (4.00-5.30); RED CELL DISTRIBUTION WIDTH 13.1 % (11.6-17.2); WHITE BLOOD COUNT 12.3 TH/MM3 (4.0-11.0)
[2017-02-13 18:13] LABS: BACTERIA, URINE RARE /hpf; BLOOD, URINE NEG (NEG); COMMENT (UR) CULTURE INDICATED; CULTURE IF INDICATED CULTURE INDICATED; GLUCOSE,URINE TRACE mg/dL (NEG); KETONE, URINE NEG (NEG); MUCUS URINE MANY /lpf (OCC); NITRITE,URINE NEG (NEG); PH, URINE 5.5 (5.0-8.5); SQUAMOUS EPITHELIAL CELL URINE 1 /hpf (0-5)
[2017-02-13 18:14] LABS: URINE COLOR ORANGE (YELLW/STRAW)
--- NOTE | 2017-02-13 18:43 | PD ---
HPI . Flank pain Chief Complaint: Pain: Acute or Chronic Time Seen by Provider: 17:20 Travel History International Travel<30 days: No Contact w/Intl Traveler<30days: No Traveled to known affect area: No History of Present Illness HPI Patient presents with a chief complaint of flank pain which started 4 days ago. She describes the pain as sharp and rates it as 10/10. Patient denies any noted exacerbating or relieving factors. The patient's history is significant for endometriosis, IBS, gastroparesis, cyclic vomiting, ovarian cyst. Her records indicate that she was scheduled to have a hysterectomy in December. This has not been done. PFSH Past Medical History Hx Anticoagulant Therapy: No Arthritis: No Asthma: No Autoimmune Disease: No Blood Disorders: No Anxiety: No Depression: No Heart Rhythm Problems: No Cancer: No Cardiovascular Problems: No High Cholesterol: No Chemotherapy: No Chest Pain: No Congestive Heart Failure: No COPD: No Cerebrovascular Accident: No Diabetes: No Diminished Hearing: No Endocrine: No Gastrointestinal Disorders: Yes (GASTROPARESIS) GERD: Yes Glaucoma: No Genitourinary: No Headaches: No Hepatitis: No Hiatal Hernia: Yes Hypertension: No Immune Disorder: No Implanted Vascular Access Dvce: No Kidney Stones: No Musculoskeletal: No Neurologic: Yes Psychiatric: No Reproductive: Yes (ENDIOMETRESIS) Respiratory: No Immunizations Current: No Migraines: No Myocardial Infarction: No Radiation Therapy: No Seizures: No Sickle Cell Disease: No Sleep Apnea: No Thyroid Disease: No Ulcer: Yes ?: Not LMP: OCTOBER 2015 : 3 Para: 2 Miscarriage: 0 : 1 Ovarian Cysts: Yes Past Surgical History Abdominal Surgery: Yes (EXP LAP) AICD: No Appendectomy: No Arteriovenous Shunt: No Cardiac Surgery: No Section: Yes Cholecystectomy: No Ear Surgery: No Endocrine Surgery: No Eye Surgery: No Genitourinary Surgery: Yes Gynecologic Surgery: Yes Insulin Pump: No Joint Replacement: No Neurologic Surgery: Yes Oral Surgery: No Pacemaker: No Thoracic Surgery: No Tonsillectomy: Yes Other Surgery: Yes (colon polyp rempoval) Social History Alcohol Use: No Tobacco Use: Yes (1PPD) Substance Use: Yes (marijuana-LAST NIGHT) Allergies-Medications (Allergen,Severity, Reaction): Coded Allergies: Amoxicillin (Verified Allergy, Severe, VOMITING, 02/13/17) Morphine (Verified Allergy, Severe, Hives , 02/13/17) Penicillin (Verified Allergy, Severe, VOMITING, 02/13/17) Sulfa (Verified Adverse Reaction, Severe, VOMITING, 02/13/17) Reported Meds & Prescriptions Reported Meds & Active Scripts Active K-Phos (Potassium Phosphate Monobasic) 500 Mg Tab 500 Mg PO PCHS Potassium Chloride ER (Potassium Chloride) 20 Meq Tab 20 Meq PO DAILY Pantoprazole (Pantoprazole Sodium) 40 Mg Tab 40 Mg PO DAILY Oxycodone (Oxycodone HCl) 5 Mg Tab 5 Mg PO Q4H PRN Reported Provera (Medroxyprogesterone Acetate) 2.5 Mg Tab 2.5 Mg PO DAILY Start day 21 Review of Systems Except as stated in HPI: all other systems reviewed are Neg General / Constitutional: No: Fever, Chills Gastrointestinal: Positive: Nausea, Vomiting, Abdominal Pain, No: Diarrhea Genitourinary: Positive: Flank Pain, No: Urgency, Frequency, Dysuria Physical Exam Narrative Vital Signs Date Time Temp Pulse Resp B/P Pulse Ox O2 Delivery O2 Flow Rate FiO2 02/13/17 16:43 98.0 108 16 125/84 98 GENERAL: Thin, chronically ill-appearing woman who is contorting her body into very unusual positions. She has been whining continuously. SKIN: Warm and dry. HEAD: Atraumatic. Normocephalic. EYES: Pupils equal and round. Extraocular movements are intact. ENT: No nasal bleeding or discharge. Mucous membranes pink and moist. NECK: Trachea midline. Neck is supple. CARDIOVASCULAR: Regular rate and rhythm. Heart sounds are normal. Heart rate is 108. RESPIRATORY: No accessory muscle use. Lungs sound clear with good air movement throughout. GASTROINTESTINAL: Abdomen soft. Diffuse tenderness to palpation. Bowel sounds present. Nondistended. MUSCULOSKELETAL: No obvious deformities. No edema. The patient certainly has no limitation in movement. NEUROLOGICAL: Awake and alert. No obvious cranial nerve deficits. Motor grossly within normal limits. Normal speech. PSYCHIATRIC: Hystrionic affect Data Data Last Documented VS Vital Signs Date Time Temp Pulse Resp B/P Pulse Ox O2 Delivery O2 Flow Rate FiO2 02/13/17 16:43 98.0 108 16 125/84 98 Orders Complete Blood Count With Diff (02/13/17 17:43) Comprehensive Metabolic Panel (02/13/17 17:43) Urinalysis - C+S If Indicated (02/13/17 17:43) Iv Access Insert/Monitor (02/13/17 17:43) Ondansetron Inj (Zofran Inj) (02/13/17 17:45) Sodium Chloride 0.9% Flush (Ns Flush) (02/13/17 17:45) Ketorolac Inj (Toradol Inj) (02/13/17 17:45) Ed Urine Pregnancytest Poc (02/13/17 17:43) Drug Screen, Random Urine (02/13/17 17:43) Urine Culture (02/13/17 18:00) Ct Abd/Pel W Iv Contrast(Rout) (02/13/17 18:36) Ceftriaxone Inj (Rocephin Inj) (02/13/17 18:45) Iohexol 350 Inj (Omnipaque 350 Inj) (02/13/17 19:11) Labs Laboratory Tests Test 02/13/17 02/13/17 02/13/17 17:10 18:00 18:50 White Blood Count 12.3 TH/MM3 Red Blood Count 5.45 MIL/MM3 Hemoglobin 17.0 GM/DL Hematocrit 50.7 % Mean Corpuscular Volume 93.0 FL Mean Corpuscular Hemoglobin 31.1 PG Mean Corpuscular Hemoglobin 33.5 % Concent Red Cell Distribution Width 13.1 % Platelet Count 345 TH/MM3 Mean Platelet Volume 8.3 FL Neutrophils (%) (Auto) 73.3 % Lymphocytes (%) (Auto) 18.7 % Monocytes (%) (Auto) 6.0 % Eosinophils (%) (Auto) 0.6 % Basophils (%) (Auto) 1.4 % Neutrophils # (Auto) 9.0 TH/MM3 Lymphocytes # (Auto) 2.3 TH/MM3 Monocytes # (Auto) 0.7 TH/MM3 Eosinophils # (Auto) 0.1 TH/MM3 Basophils # (Auto) 0.2 TH/MM3 CBC Comment DIFF FINAL Differential Comment Urine Color ORANGE Urine Turbidity HAZY Urine pH 5.5 Urine Specific [place] 1.035 Urine Protein 300 mg/dL Urine Glucose (UA) TRACE mg/dL Urine Ketones NEG mg/dL Urine Occult Blood NEG Urine Nitrite NEG Urine Bilirubin NEG Urine Urobilinogen 4.0 MG/DL Urine Leukocyte Esterase TRACE Urine RBC 2 /hpf Urine WBC 11 /hpf Urine Squamous Epithelial 1 /hpf Cells Urine Amorphous Sediment RARE Urine Bacteria RARE /hpf Urine Mucus MANY /lpf Microscopic Urinalysis Comment CULTURE INDICATED Sodium Level 139 MEQ/L Potassium Level 3.2 MEQ/L Chloride Level 101 MEQ/L Carbon Dioxide Level 24.5 MEQ/L Anion Gap 14 MEQ/L Blood Urea Nitrogen 18 MG/DL Creatinine 1.06 MG/DL Estimat Glomerular Filtration 58 ML/MIN Rate Random Glucose 150 MG/DL Calcium Level 10.3 MG/DL Total Bilirubin 0.5 MG/DL Aspartate Amino Transf 10 U/L (AST/SGOT) Alanine Aminotransferase 19 U/L (ALT/SGPT) Alkaline Phosphatase 70 U/L Total Protein 9.1 GM/DL Albumin 5.0 GM/DL MDM Medical Decision Making Medical Screen Exam Complete: Yes Emergency Medical Condition: Yes Medical Record Reviewed: Yes (patient is seen here very frequently. She typically requests Dilaudid pain control.) Differential Diagnosis Differential diagnosis of abdominal pain includes but is not limited to gastritis, pancreatitis, hepatitis, gastroenteritis, gallbladder disease, constipation, urinary retention, UTI, peptic ulcer disease, diverticulitis or appendicitis Narrative Course Patient presents complaining with right flank pain. She is very difficult to evaluate because of her demeanor. Her urine does have rare bacteria, 11 white cells and trace leukocyte esterase. The nurse tells me that this is a catheterized sample. She has been given Rocephin. CT abd/pelvis: Right adnexal cystic structure again identified which appears mildly more prominent than on the prior study. This is most consistent with an ovarian cyst there is a smaller adjacent cyst. There is a mildly nonspecific bowel gas pattern most characteristic of an ileus. CBC Diagram 02/13/17 17:10 BMP Diagram 02/13/17 18:50 The patient appears to have a UTI but no evidence of pyelonephritis. No evidence of kidney stone. She has been given a dose of Rocephin and will be discharged on Macrobid. If she needs narcotic pain medications, she will need to see her primary care physician. Narcotics are not indicated for a simple UTI. Diagnosis Primary Impression: Right flank pain Additional Impression: Urinary tract infection Qualified Code: N30.00 - Acute cystitis without hematuria Patient Instructions: General Instructions, Urinary Tract Infection in Women ( [place]) Med/Other Pt SpecificInfo: Prescription(s) given Scripts Nitrofurantoin Monohydrate Macrocrystals (Macrobid)100 Mg [id number] Mg PO BID 7 Days Ref 0 Prov:Tiffanie Britt MD 02/13/17 Disposition: 01 DISCHARGE HOME Condition: Stable Tiffanie Britt MD February 13, 2017 18:43
[2017-02-13] MEDS ORDERED: cefTRIAXone INJ 1,000 MG in SODIUM CHLORIDE 0.9% INJ 25 ML IV ONE (18:45)
[2017-02-13] MEDS ORDERED: IOHEXOL 350 MG/ML 10 ML VIAL (for RAD DIAG) IV ONE (19:11)
--- NOTE | 2017-02-13 19:24 | RADRPT ---
EXAM DATE/TIME: 02/13/2017 19:03 [facility] COMPARISON: CT ABDOMEN & PELVIS W CONTRAST, November 10, 2016, 7:28. INDICATIONS : Abdomen and back pain with vomiting. IV CONTRAST: 70 cc Omnipaque 350 (iohexol) IV ORAL CONTRAST: No oral contrast ingested. RADIATION DOSE: 6.88 CTDIvol (mGy) MEDICAL HISTORY : Gastroparesis. SURGICAL HISTORY : Hysterectomy. ENCOUNTER: Initial ACUITY: 1 day PAIN SCALE: 10/10 LOCATION: Bilateral abdomen and back TECHNIQUE: Volumetric scanning of the abdomen and pelvis was performed. Using automated exposure control and ad justment of the mA and/or kV according to patient size, radiation dose was kept as low as reasonably achievable to obtain optimal diagnostic quality images. FINDINGS: LOWER LUNGS: The visualized lower lungs are clear. LIVER: Homogeneous density without lesion. There is no dilation of the biliary tree. No calcified gallston es. SPLEEN: Normal size without lesion. PANCREAS: Within normal limits. KIDNEYS: Normal in size and shape. There is no mass, stone or hydronephrosis. ADRENAL GLANDS: Within normal limits. VASCULAR: There is no aortic aneurysm. BOWEL/MESENTERY: No oral contrast was given limiting the sensitivity of the exam. There is a mildly nonspecific bowel gas pattern with several loops of nondilated air-containing small bowel several small air-fluid level s. There is no free air or fluid. Gas and stool are noted segmentally in the colon. ABDOMINAL WALL: Within normal limits. RETROPERITONEUM: There is no lymphadenopathy. BLADDER: No wall thickening or mass. REPRODUCTIVE: A right adnexal cystic lesion is again noted which now measures 2.5 x 2.8 cm in diameter. On the prio r study this measured up to 2.2 x 2 cm. This measures approximately 2 Hounsfield units in density. Th ere is a smaller adjacent cyst as well. The uterus and left adnexa are unremarkable. INGUINAL: There is no lymphadenopathy or hernia. MUSCULOSKELETAL: Within normal limits for patient age. CONCLUSION: Right adnexal cystic structure again identified which appears mildly more prominent t magdaleno on the prior study. This is most consistent with an ovarian cyst there is a smaller adjacent cyst . There is a mildly nonspecific bowel gas pattern most characteristic of an ileus. Kenny Lee MD on February 13, 2017 at 19:18 Board Certified Radiologist. This report was verified electronically.
[2017-02-13 19:33] LABS: ANION GAP 14 MEQ/L (5-15); AST (GOT) 10 U/L (15-37); BICARBONATE 24.5 MEQ/L (21.0-32.0); BLOOD UREA NITROGEN 18 MG/DL (7-18); CHLORIDE 101 MEQ/L (98-107); GLOMERULAR FILTRATION RATE 58 ML/MIN (>89); POTASSIUM 3.2 MEQ/L (3.5-5.1); SODIUM (NA) 139 MEQ/L (136-145)
[2017-02-13 19:40] LABS: ALKALINE PHOSPHATASE 70 U/L (45-117); ALT (GPT) 19 U/L (10-53); TOTAL BILIRUBIN ADULT 0.5 MG/DL (0.2-1.0)
[2017-02-13] MEDS ORDERED: MACR100C2 PO (19:50)
[2017-02-13 19:54] LABS: AMPHETAMINE, URINE NEG (NEG); BARBITURATES, URINE NEG (NEG); COCAINE, URINE NEG (NEG)
== END 2017-02-13 20:09 | disposition home or self-care (01) ==
LOC: NEPD 16:41
DX: R10.9 Unspecified abdominal pain (principal); N39.0 Urinary tract infection, site not specified; F17.210 Nicotine dependence, cigarettes, uncomplicated; F12.10 Cannabis abuse, uncomplicated
CPT/HCPCS: 74177; 80053; 80307; 81001; 84703; 85025; 87086; 96365; 96375; 99285; J0696; J1885; J2405; Q9967

== ENCOUNTER 2017-03-08 06:39 | Emergency (ER) | payer MEDICAID ==
[~2017-03-08] VITALS: Ht 160 cm; Wt 42.0 kg
[~2017-03-08 06:39] MED LIST changes: +MACR100C2 PO
[2017-03-08 06:48] VITALS: BP 115/83; PULSE 130; RESP 16; TEMP 98; O2SAT 97
[2017-03-08] MEDS ORDERED: LUPR11.22 IM (07:11)
--- NOTE | 2017-03-08 07:19 | PD ---
HPI Chief Complaint: Abdominal Pain Time Seen by Provider: 07:00 Travel History International Travel<30 days: No Contact w/Intl Traveler<30days: No Traveled to known affect area: No History of Present Illness HPI 36-year-old female complains of back pain, nausea vomiting and abdominal pain. Patient states the symptoms started 4 days ago. Patient has been to the emergency room multiple times in the past with same problem. Patient states that she has history of endometriosis, gastroparesis and chronic recurrent abdominal pain with nausea vomiting and also back pain. Patient denies any recent injury. Patient denies any fever chills. Patient denies any headache. Patient denies any chest pain or shortness of breath. Patient denies any dysuria or frequency. Patient denies any vaginal discharge or bleeding. On a scale of 1-10 the pain is a 10. PFSH Past Medical History Hx Anticoagulant Therapy: No Arthritis: No Asthma: No Autoimmune Disease: No Blood Disorders: No Anxiety: No Depression: No Heart Rhythm Problems: No Cancer: No Cardiovascular Problems: No High Cholesterol: No Chemotherapy: No Chest Pain: No Congestive Heart Failure: No COPD: No Cerebrovascular Accident: No Diabetes: No Diminished Hearing: No Endocrine: No Gastrointestinal Disorders: Yes (GASTROPARESIS) GERD: Yes Glaucoma: No Genitourinary: No Headaches: No Hepatitis: No Hiatal Hernia: Yes Hypertension: No Immune Disorder: No Implanted Vascular Access Dvce: No Kidney Stones: No Musculoskeletal: No Neurologic: Yes Psychiatric: No Reproductive: Yes (ENDIOMETRESIS) Respiratory: No Immunizations Current: No Migraines: No Myocardial Infarction: No Radiation Therapy: No Seizures: No Sickle Cell Disease: No Sleep Apnea: No Thyroid Disease: No Ulcer: Yes Tetanus Vaccination: > 5 Years Influenza Vaccination: No ?: Not LMP: no menses : 3 Para: 2 Miscarriage: 0 : 1 Ovarian Cysts: Yes Past Surgical History Abdominal Surgery: Yes (EXP LAP) AICD: No Appendectomy: No Arteriovenous Shunt: No Cardiac Surgery: No Section: Yes Cholecystectomy: No Ear Surgery: No Endocrine Surgery: No Eye Surgery: No Genitourinary Surgery: Yes Gynecologic Surgery: Yes Insulin Pump: No Joint Replacement: No Neurologic Surgery: Yes Oral Surgery: No Pacemaker: No Thoracic Surgery: No Tonsillectomy: Yes Other Surgery: Yes (colon polyp rempoval) Social History Alcohol Use: No Tobacco Use: Yes (1PPD) Substance Use: Yes (marijuana) Allergies-Medications (Allergen,Severity, Reaction): Coded Allergies: Amoxicillin (Verified Allergy, Severe, VOMITING, 03/08/17) Morphine (Verified Allergy, Severe, Hives , 03/08/17) Penicillin (Verified Allergy, Severe, VOMITING, 03/08/17) Sulfa (Verified Adverse Reaction, Severe, VOMITING, 03/08/17) Reported Meds & Prescriptions Reported Meds & Active Scripts Active Reported Lupron [place] Inj Kit (Leuprolide (3 Month) Inj Kit) Unknown Strength Kit Unknown Dose IM Q90D Review of Systems General / Constitutional: No: Fever Eyes: No: Visual changes HENT: No: Headaches Cardiovascular: No: Chest Pain or Discomfort Respiratory: No: Shortness of Breath Gastrointestinal: Positive: Nausea, Vomiting, Abdominal Pain Genitourinary: No: Dysuria Musculoskeletal: No: Pain Skin: No Rash Neurologic: No: Weakness Psychiatric: No: Depression Endocrine: No: Polydipsia Hematologic/Lymphatic: No: Easy Bruising Physical Exam Narrative GENERAL: Well-nourished, well-developed patient. SKIN: Focused skin assessment warm/dry. HEAD: Normocephalic. EYES: No scleral icterus. No injection or drainage. NECK: Supple, trachea midline. No JVD or lymphadenopathy. CARDIOVASCULAR: Regular rate and rhythm without murmurs, gallops, or rubs. RESPIRATORY: Breath sounds equal bilaterally. No accessory muscle use. GASTROINTESTINAL: Abdomen soft, nondistended. Patient has moderate diffuse tenderness over the abdomen. No rebound tenderness. No mass. MUSCULOSKELETAL: No cyanosis, or edema. BACK: Patient has moderate tenderness on palpation thoracic and lumbar spine, without obvious deformity. No CVA tenderness. Neurologic exam normal. Data Data Last Documented VS Vital Signs Date Time Temp Pulse Resp B/P Pulse Ox O2 Delivery O2 Flow Rate FiO2 03/08/17 06:48 98.0 130 16 115/83 97 MDM Medical Decision Making Medical Screen Exam Complete: Yes Emergency Medical Condition: Yes Differential Diagnosis Differential diagnosis including acute on chronic abdominal pain and back pain, gastritis, PUD, pancreatitis, cholecystitis, colitis, UTI, pyelonephritis, lumbar strain, spine fracture, HNP. Narrative Course 36-year-old female with recurrent abdominal pain, nausea vomiting and back pain. Patient was offered Toradol and Zofran and IV fluid. Patient refused and walked out. Diagnosis Primary Impression: Recurrent abdominal pain Patient Instructions: General Instructions Additional Instructions: Patient left AMA. Disposition: AGAINST MEDICAL ADVICE Condition: Konrad Sanchez MD Mar 08, 2017 07:19
== END 2017-03-08 07:21 | disposition left against medical advice (07) ==
LOC: PHED 06:39
DX: R10.9 Unspecified abdominal pain (principal)
CPT/HCPCS: 99281

== ENCOUNTER 2017-03-08 14:16 | Emergency (ER) | payer MEDICAID ==
[~2017-03-08 14:16] MED LIST changes: +LUPR11.22 IM
[2017-03-08 14:19] VITALS: BP 135/91; PULSE 105; RESP 24; TEMP 98.1; O2SAT 98
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
[2017-03-08 14:59] LABS: BACTERIA, URINE MANY /hpf; BLOOD, URINE TRACE (NEG); COMMENT (UR) CULTURE INDICATED; CULTURE IF INDICATED CULTURE INDICATED; GLUCOSE,URINE TRACE mg/dL (NEG); HYALINE CAST, URINE INNUM /lpf (RARE); KETONE, URINE NEG (NEG); MUCUS URINE MANY /lpf (OCC); NITRITE,URINE NEG (NEG); PH, URINE 5.5 (5.0-8.5); SQUAMOUS EPITHELIAL CELL URINE 78 /hpf (0-5); URINE COLOR DARK-YELLOW (YELLW/STRAW)
--- NOTE | 2017-03-08 15:35 | PD ---
HPI . Abdominal pain and back pain with endometriosis history Chief Complaint: GI Complaint Time Seen by Provider: 15:35 Travel History International Travel<30 days: No Contact w/Intl Traveler<30days: No Traveled to known affect area: No History of Present Illness HPI 36-year-old female with history of endometriosis reports getting treatment at [facility] with Lupron for initiation of menopause here with complaints of nausea, abdominal pain and back pain that is very severe 10 out of 10. Of note patient was here in the emergency department earlier this morning around 7 AM and was seen by Dr. Norris. She was offered Toradol and Zofran and decided to leave the emergency room. Today I am examining the patient and she is requesting Zofran and Dilaudid. She is in tears telling me this is the only thing that works for her. She is trying to buy time until her next visit at [facility] that she reports is next week. She denies any fever or chills. PFSH Past Medical History Hx Anticoagulant Therapy: No Arthritis: No Asthma: No Autoimmune Disease: No Blood Disorders: No Anxiety: No Depression: No Heart Rhythm Problems: No Cancer: No Cardiovascular Problems: No High Cholesterol: No Chemotherapy: No Chest Pain: No Congestive Heart Failure: No COPD: No Cerebrovascular Accident: No Diabetes: No Diminished Hearing: No Endocrine: No Gastrointestinal Disorders: Yes (GASTROPARESIS) GERD: Yes Glaucoma: No Genitourinary: No Headaches: No Hepatitis: No Hiatal Hernia: Yes Hypertension: No Immune Disorder: No Implanted Vascular Access Dvce: No Kidney Stones: No Musculoskeletal: No Neurologic: Yes Psychiatric: No Reproductive: Yes (ENDIOMETRESIS) Respiratory: No Immunizations Current: No Migraines: No Myocardial Infarction: No Radiation Therapy: No Seizures: No Sickle Cell Disease: No Sleep Apnea: No Thyroid Disease: No Ulcer: Yes : 3 Para: 2 Miscarriage: 0 : 1 Ovarian Cysts: Yes Past Surgical History Abdominal Surgery: Yes (EXP LAP) AICD: No Appendectomy: No Arteriovenous Shunt: No Cardiac Surgery: No Section: Yes Cholecystectomy: No Ear Surgery: No Endocrine Surgery: No Eye Surgery: No Genitourinary Surgery: Yes Gynecologic Surgery: Yes Insulin Pump: No Joint Replacement: No Neurologic Surgery: Yes Oral Surgery: No Pacemaker: No Thoracic Surgery: No Tonsillectomy: Yes Other Surgery: Yes (colon polyp rempoval) Social History Alcohol Use: No Tobacco Use: Yes (1PPD) Substance Use: Yes (marijuana) Allergies-Medications (Allergen,Severity, Reaction): Coded Allergies: Amoxicillin (Verified Allergy, Severe, VOMITING, 03/08/17) Morphine (Verified Allergy, Severe, Hives , 03/08/17) Penicillin (Verified Allergy, Severe, VOMITING, 03/08/17) Sulfa (Verified Adverse Reaction, Severe, VOMITING, 03/08/17) Reported Meds & Prescriptions Reported Meds & Active Scripts Active Reported Lupron Depot Inj Kit (Leuprolide (3 Month) Inj Kit) Unknown Strength Kit Unknown Dose IM Q90D Review of Systems General / Constitutional: No: Fever Eyes: No: Visual changes HENT: No: Headaches Cardiovascular: No: Chest Pain or Discomfort Respiratory: No: Shortness of Breath Gastrointestinal: Positive: Nausea, Vomiting, Abdominal Pain Genitourinary: No: Dysuria Musculoskeletal: Positive: Pain (back) Skin: No Rash Neurologic: No: Weakness Psychiatric: No: Depression Endocrine: No: Polydipsia Hematologic/Lymphatic: No: Easy Bruising Physical Exam Narrative GENERAL: AAO x 3, no acute distress, Well-nourished, well-developed patient. Laying in bed comfortable SKIN: Warm and dry. No visible rashes or bruising. HEAD: Normocephalic and atraumatic. EYES: No scleral icterus. No injection or drainage. ENT: No nasal drainage noted. Mucous membranes pink. Airway patent. NECK: Supple, trachea midline. No JVD. CARDIOVASCULAR: Regular rate and rhythm without murmurs, gallops, or rubs. RESPIRATORY: Breath sounds equal bilaterally. No accessory muscle use. No rhonchi or rales. GASTROINTESTINAL: Abdomen soft, non-tender, nondistended. Negative Leonard's and McBurney's, no rebound or guarding EXTREMITIES: No cyanosis or edema. BACK: Nontender without obvious deformity. No CVA tenderness. NEURO: CN II-12 intact, machine driller strength normal b/l, UE and LE 5/5, no focal deficits PSYCH: AAO x 3, normal affect. Data Data Last Documented VS Vital Signs Date Time Temp Pulse Resp B/P Pulse Ox O2 Delivery O2 Flow Rate FiO2 03/08/17 14:19 98.1 105 24 135/91 98 Room Air Orders Complete Blood Count With Diff (03/08/17 14:28) Comprehensive Metabolic Panel (03/08/17 14:28) Urinalysis - C+S If Indicated (03/08/17 14:28) Urine Culture (03/08/17 14:35) Labs Laboratory Tests Test 03/08/17 14:35 Urine Color DARK-YELLOW Urine Turbidity CLOUDY Urine pH 5.5 Urine Specific [place] 1.026 Urine Protein 300 mg/dL Urine Glucose (UA) TRACE mg/dL Urine Ketones NEG mg/dL Urine Occult Blood TRACE Urine Nitrite NEG Urine Bilirubin NEG Urine Urobilinogen 2.0 MG/DL Urine Leukocyte Esterase NEG Urine RBC 4 /hpf Urine WBC 5 /hpf Urine Squamous Epithelial 78 /hpf Cells Urine Bacteria MANY /hpf Urine Hyaline Casts INNUM /lpf Urine Mucus MANY /lpf Microscopic Urinalysis Comment CULTURE INDICATED MDM Medical Decision Making Medical Screen Exam Complete: Yes Emergency Medical Condition: Yes Medical Record Reviewed: Yes Differential Diagnosis Acute on chronic pain, endometriosis, nausea and vomiting, gastroenteritis, drug -seeking behavior Narrative Course 36-year-old female here with complaints of nausea, vomiting, back pain. I have done a complete exam and there is no acute findings. She does not have any signs of an acute intra-abdominal process. Patient is requesting Dilaudid and Zofran. I've explained to her that unfortunately I will not be providing these medications. I have offered her Toradol and Zofran and she agrees to this. [id number]: patient no longer in exam room, it appears she has left the hospital. Diagnosis Primary Impression: Left against medical advice Condition: Stable Emily Sargent Mar 08, 2017 15:35
== END 2017-03-08 17:48 | disposition left against medical advice (07) ==
LOC: NEPD 14:16
DX: R10.9 Unspecified abdominal pain (principal); M54.5 Low back pain; R82.71 Bacteriuria
CPT/HCPCS: 81001; 87086; 99283

== ENCOUNTER 2017-03-29 00:06 | Emergency (ER) | payer MEDICAID ==
[~2017-03-29] VITALS: Ht 160 cm; Wt 46.0 kg
[~2017-03-29 00:06] MED LIST changes: -K-PHTAB PO; -MACR100C2 PO; -MEDR2.5 PO; -OXYC-392 PO; -PANT40TA3 PO; -POTA-163 PO
[2017-03-29 00:08] VITALS: BP 110/67; PULSE 127; RESP 18; TEMP 99.1; O2SAT 96
[2017-03-29] MEDS ORDERED: ZOFR4TAB PO (04:14)
== END 2017-03-29 02:30 | disposition left against medical advice (07) ==
LOC: NED 00:06
DX: R11.10 Vomiting, unspecified (principal); Z53.29 Procedure and treatment not carried out because of patient's decision for other reasons
CPT/HCPCS: 99281

== ENCOUNTER 2017-03-29 04:02 | Emergency (ER) | payer MEDICAID ==
[~2017-03-29] VITALS: Ht 160 cm; Wt 45.4 kg
[2017-03-29 04:05] VITALS: BP 144/106; PULSE 100; RESP 16; TEMP 98.4; O2SAT 97
[2017-03-29] MEDS ORDERED: ZOFR4TAB PO (04:14)
[2017-03-29] MEDS ORDERED: SODIUM CHLORIDE 0.9% FLUSH 10 ML FLUSH IV FLUSH PRN (04:30)
[2017-03-29] MEDS ORDERED: SODIUM CHLORID 0.9% 500 ML INJ 500 ML IV ONE (04:30)
--- NOTE | 2017-03-29 04:38 | PD ---
HPI Chief Complaint: Abdominal Pain Time Seen by Provider: 04:32 Travel History International Travel<30 days: No Contact w/Intl Traveler<30days: No Traveled to known affect area: No History of Present Illness HPI 36-year-old female presents to the emergency department by EMS transport from home for complaint of abdominal pain. Patient reports that Dilaudid and Zofran with daily medications that work for her pain. Patient has history of endometriosis gastroparesis and chronic abdominal pain and more recently states that she was hospitalized 3 weeks ago at [facility] and during that hospitalization she was told she has melanoma. Patient has not followed by an oncologist. Patient reportedly lost her insurance and has to wait for her Medicaid to become effective in order to be seen by an oncologist reportedly. Patient does not report any fever or chills hematemesis coffee-ground emesis melena hematochezia. Patient does report nausea and vomiting and states that she needs Dilaudid and Zofran for pain. Patient does not report any urinary symptoms. No respiratory illness. Patient reports her pain as 10 over 10 in intensity. Patient has had multiple visits to the emergency department for same complaint and has been identified to have undergone several CT abdomen and pelvis exams which show persistent ovarian cysts. Patient is unable to identify exacerbating factors and states Dilaudid and Zofran are the only alleviating factors. PFSH Past Medical History Narrative Medical Gastroparesis endometriosis ovarian cyst melanoma hiatal hernia polypectomy C- section uterine ablation; tobacco use; nursing notes reviewed Hx Anticoagulant Therapy: No Arthritis: No Asthma: No Autoimmune Disease: No Blood Disorders: No Anxiety: No Depression: No Heart Rhythm Problems: No Cancer: Yes (MELANOMA?) Cardiovascular Problems: No High Cholesterol: No Chemotherapy: No Chest Pain: No Congestive Heart Failure: No COPD: No Cerebrovascular Accident: No Diabetes: No Diminished Hearing: No Endocrine: No Gastrointestinal Disorders: Yes (GASTROPARESIS) GERD: Yes Glaucoma: No Genitourinary: No Headaches: No Hepatitis: No Hiatal Hernia: Yes Hypertension: No Immune Disorder: No Implanted Vascular Access Dvce: No Kidney Stones: No Musculoskeletal: No Neurologic: Yes Psychiatric: No Reproductive: Yes (ENDOMETRIOSIS) Respiratory: No Immunizations Current: No Migraines: No Myocardial Infarction: No Radiation Therapy: No Seizures: No Sickle Cell Disease: No Sleep Apnea: No Thyroid Disease: No Ulcer: Yes ?: Not LMP: OCT 2015 : 3 Para: 2 Miscarriage: 0 : 1 Ovarian Cysts: Yes Past Surgical History Abdominal Surgery: Yes (EXP LAP) AICD: No Appendectomy: No Arteriovenous Shunt: No Cardiac Surgery: No Section: Yes Cholecystectomy: No Ear Surgery: No Endocrine Surgery: No Eye Surgery: No Genitourinary Surgery: Yes Gynecologic Surgery: Yes (UTERINE ABLATION: 2016) Insulin Pump: No Joint Replacement: No Neurologic Surgery: Yes Oral Surgery: No Pacemaker: No Thoracic Surgery: No Tonsillectomy: Yes Other Surgery: Yes (colon polyp rempoval) Social History Alcohol Use: No Tobacco Use: Yes (1PPD) Substance Use: Yes (marijuana) Allergies-Medications (Allergen,Severity, Reaction): Coded Allergies: Amoxicillin (Verified Allergy, Severe, VOMITING, 03/29/17) Morphine (Verified Allergy, Severe, Hives , 03/29/17) Penicillin (Verified Allergy, Severe, VOMITING, 03/29/17) Sulfa (Verified Adverse Reaction, Severe, VOMITING, 03/29/17) Reported Meds & Prescriptions Reported Meds & Active Scripts Active Reported Zofran (Ondansetron HCl) 4 Mg Tab 4 Mg PO Q6HR PRN Lupron Depot Inj Kit (Leuprolide (3 Month) Inj Kit) Unknown Strength Kit Unknown Dose IM Q90D Review of Systems Except as stated in HPI: all other systems reviewed are Neg General / Constitutional: No: Fever HENT: No: Congestion Cardiovascular: No: Chest Pain or Discomfort Respiratory: No: Shortness of Breath Gastrointestinal: Positive: Vomiting, Abdominal Pain Genitourinary: No: Dysuria, Flank Pain Musculoskeletal: No: Myalgias, Arthralgias Skin: No Rash Neurologic: No: Weakness Endocrine: No: Heat Intolerance Hematologic/Lymphatic: No: Easy Bruising Physical Exam Narrative GENERAL: Well-developed thin female in no respiratory distress tearful requesting pain medication SKIN: Warm and dry. HEAD: Normocephalic. EYES: No scleral icterus. No injection or drainage. NECK: Supple, trachea midline. No JVD or lymphadenopathy. CARDIOVASCULAR: Regular rate and rhythm without murmurs, gallops, or rubs. RESPIRATORY: Breath sounds equal bilaterally. No accessory muscle use. GASTROINTESTINAL: Abdomen soft, non-tender, nondistended. MUSCULOSKELETAL: No cyanosis, or edema. BACK: Nontender without obvious deformity. No CVA tenderness. Data Data Last Documented VS Vital Signs Date Time Temp Pulse Resp B/P Pulse Ox O2 Delivery O2 Flow Rate FiO2 03/29/17 04:55 93 127/85 Room Air 03/29/17 04:05 98.4 16 97 Orders Complete Blood Count With Diff (03/29/17 04:30) Comprehensive Metabolic Panel (03/29/17 04:30) Lipase (03/29/17 04:30) Urinalysis - C+S If Indicated (03/29/17 04:30) Iv Access Insert/Monitor (03/29/17 04:30) Ecg Monitoring (03/29/17 04:30) Oximetry (03/29/17 04:30) Sodium Chloride 0.9% Flush (Ns Flush) (03/29/17 04:30) Sodium Chlorid 0.9% 500 Ml Inj (Ns 500 M (03/29/17 04:30) Drug Screen, Random Urine (03/29/17 04:30) Magnesium (Mg) (03/29/17 04:30) Ketorolac Inj (Toradol Inj) (03/29/17 05:00) Ondansetron Inj (Zofran Inj) (03/29/17 05:00) Metoclopramide Inj (Reglan Inj) (03/29/17 05:30) Potassium Chloride (Kcl) (03/29/17 05:30) Abdomen, Flat & Upright (03/29/17 ) Potassium Chlor 10 Meq Premix (Kcl 10 Me (03/29/17 05:30) Pantoprazole Inj (Protonix Inj) (03/29/17 05:30) Labs Laboratory Tests Test 03/29/17 04:25 White Blood Count 20.5 TH/MM3 Red Blood Count 5.45 MIL/MM3 Hemoglobin 17.0 GM/DL Hematocrit 51.0 % Mean Corpuscular Volume 93.5 FL Mean Corpuscular Hemoglobin 31.2 PG Mean Corpuscular Hemoglobin 33.4 % Concent Red Cell Distribution Width 12.9 % Platelet Count 370 TH/MM3 Mean Platelet Volume 8.2 FL Neutrophils (%) (Auto) 88.7 % Lymphocytes (%) (Auto) 6.0 % Monocytes (%) (Auto) 3.8 % Eosinophils (%) (Auto) 0.2 % Basophils (%) (Auto) 1.3 % Neutrophils # (Auto) 18.2 TH/MM3 Lymphocytes # (Auto) 1.2 TH/MM3 Monocytes # (Auto) 0.8 TH/MM3 Eosinophils # (Auto) 0.0 TH/MM3 Basophils # (Auto) 0.3 TH/MM3 CBC Comment DIFF FINAL Differential Comment Sodium Level 138 MEQ/L Potassium Level 2.9 MEQ/L Chloride Level 102 MEQ/L Carbon Dioxide Level 25.3 MEQ/L Anion Gap 11 MEQ/L Blood Urea Nitrogen 26 MG/DL Creatinine 1.20 MG/DL Estimat Glomerular Filtration 50 ML/MIN Rate Random Glucose 150 MG/DL Calcium Level 10.0 MG/DL Magnesium Level 2.2 MG/DL Total Bilirubin 0.6 MG/DL Aspartate Amino Transf 14 U/L (AST/SGOT) Alanine Aminotransferase 19 U/L (ALT/SGPT) Alkaline Phosphatase 74 U/L Total Protein 9.4 GM/DL Albumin 5.0 GM/DL Lipase 93 U/L MDM Medical Decision Making Medical Screen Exam Complete: Yes Emergency Medical Condition: Yes Medical Record Reviewed: Yes Differential Diagnosis Chronic pain syndrome, gastroparesis, possible cyclic vomiting syndrome, abdominal pain, bowel obstruction, UTI, endometriosis pain, ruptured ovarian cyst, bowel obstruction Narrative Course IV access obtained by EMS and in the emergency department specimens collected and sent for resulting; patient receiving 500 cc bolus by EMS and will be given an additional 500 cc bolus of IV fluids patient and offered Zofran and Toradol Patient again specifically asking for Dilaudid and informed patient that at this time would not be administering Dilaudid Patient identified to have low potassium; patient sitting quietly upright on stretcher in no distress when I entered her room and informed that we'll administer Reglan 10 mg IV and oral potassium for potassium replacement as well as IV potassium upon hearing this the patient again throws herself back onto the stretcher and asks again for Dilaudid stating a one time dose of Dilaudid is the only thing that will help her. Patient informed that she needs potassium replacement at this time and plan of medication administration. At 5:39 AM informed by x-ray tech that patient has eloped from the exam room while I was attending to another patient. This was confirmed by patient's RN. Diagnosis Primary Impression: Left against medical advice Additional Impression: Hypokalemia Additional Instructions: AMA Disposition: 07 AGAINST MEDICAL ADVICE Condition: Stable Salter,Missy H. MD Mar 29, 2017 04:38
[2017-03-29 04:50] LABS: AUTOMATED NEUTROPHIL # 18.2 TH/MM3 (1.8-7.7); BASOPHIL # 0.3 TH/MM3 (0-0.2); BASOPHIL % 1.3 % (0.0-2.0); EOSINOPHIL % 0.2 % (0.0-4.0); LYMPHOCYTE # 1.2 TH/MM3 (1.0-4.8); MEAN CELL VOLUME 93.5 FL (80.0-100.0); MEAN CORPUSCULAR HEMOGLOBIN 31.2 PG (27.0-34.0); MEAN CORPUSCULAR HGB CONC 33.4 % (32.0-36.0); MONO % 3.8 % (0.0-8.0); NEUT % 88.7 % (16.0-70.0); PLATELET COUNT 370 TH/MM3 (150-450); RED BLOOD COUNT 5.45 MIL/MM3 (4.00-5.30); RED CELL DISTRIBUTION WIDTH 12.9 % (11.6-17.2); WHITE BLOOD COUNT 20.5 TH/MM3 (4.0-11.0)
[2017-03-29 04:51] LABS: HEMO FLAGS DIFF FINAL
[2017-03-29 04:55] VITALS: BP 127/85; PULSE 93
[2017-03-29 04:57] LABS: CHLORIDE 102 MEQ/L (98-107)
[2017-03-29] MEDS ORDERED: ONDANSETRON HCL 4 MG/2 ML VIAL IV PUSH ONE (05:00)
[2017-03-29] MEDS ORDERED: KETOROLAC TROMETHAMINE 30 MG/ML (IVP) VIAL IV PUSH ONE (05:00)
[2017-03-29 05:04] LABS: ALT (GPT) 19 U/L (10-53); ANION GAP 11 MEQ/L (5-15); AST (GOT) 14 U/L (15-37); BICARBONATE 25.3 MEQ/L (21.0-32.0); BLOOD UREA NITROGEN 26 MG/DL (7-18); MAGNESIUM 2.2 MG/DL (1.5-2.5); SODIUM (NA) 138 MEQ/L (136-145)
[2017-03-29 05:09] LABS: ALKALINE PHOSPHATASE 74 U/L (45-117); GLOMERULAR FILTRATION RATE 50 ML/MIN (>89); TOTAL BILIRUBIN ADULT 0.6 MG/DL (0.2-1.0)
[2017-03-29 05:12] LABS: POTASSIUM 2.9 MEQ/L (3.5-5.1)
[2017-03-29] MEDS ORDERED: POTASSIUM CHLOR 10 MEQ PREMIX 100 ML IV ONE (05:30)
[2017-03-29] MEDS ORDERED: METOCLOPRAMIDE HCL 10 MG/2 ML VIAL IV PUSH ONE (05:30)
[2017-03-29] MEDS ORDERED: POTASSIUM CHLORIDE 20 MEQ CONTROLLED RELEASE TAB PO ONE (05:30)
[2017-03-29] MEDS ORDERED: PANTOPRAZOLE SODIUM 40 MG VIAL IV PUSH ONE (05:30)
== END 2017-03-29 05:33 | disposition left against medical advice (07) ==
LOC: PHED 04:02
DX: E87.6 Hypokalemia (principal); K31.84 Gastroparesis
CPT/HCPCS: 80053; 83690; 83735; 85025; 96361; 96374; 96375; 99284; J1885; J2405; J7040

== ENCOUNTER 2017-04-09 14:22 | Emergency (ER) | payer MEDICAID ==
[~2017-04-09] VITALS: Ht 160 cm; Wt 48.0 kg
[~2017-04-09 14:22] MED LIST changes: +ZOFR4TAB PO
[2017-04-09 14:23] VITALS: BP 129/66; PULSE 84; RESP 14; TEMP 97.9; O2SAT 100
--- NOTE | 2017-04-09 16:31 | PD ---
HPI Chief Complaint: Pain: Acute or Chronic Time Seen by Provider: 16:23 Travel History International Travel<30 days: No Contact w/Intl Traveler<30days: No Traveled to known affect area: No History of Present Illness HPI 36-year-old female presents emergency department for evaluation of a red streak going up her left arm. Patient reports yesterday she developed mild pain within the forearm. Upon waking today she noticed some redness starting near the wrist extending up to the axilla. She denies fever or chills. She denies history of drug abuse. She reports the pain as mild. No aggravating or alleviating factors. Past medical history significant only for endometriosis. PFSH Past Medical History Narrative Medical Significant for Endometriosis Hx Anticoagulant Therapy: No Arthritis: No Asthma: No Autoimmune Disease: No Blood Disorders: No Anxiety: No Depression: No Heart Rhythm Problems: No Cancer: Yes (MELANOMA?) Cardiovascular Problems: No High Cholesterol: No Chemotherapy: No Chest Pain: No Congestive Heart Failure: No COPD: No Cerebrovascular Accident: No Diabetes: No Diminished Hearing: No Endocrine: No Gastrointestinal Disorders: Yes (GASTROPARESIS) GERD: Yes Glaucoma: No Genitourinary: No Headaches: No Hepatitis: No Hiatal Hernia: Yes Hypertension: No Immune Disorder: No Implanted Vascular Access Dvce: No Kidney Stones: No Musculoskeletal: No Neurologic: Yes Psychiatric: No Reproductive: Yes (ENDOMETRIOSIS) Respiratory: No Immunizations Current: No Migraines: No Myocardial Infarction: No Radiation Therapy: No Seizures: No Sickle Cell Disease: No Sleep Apnea: No Thyroid Disease: No Ulcer: Yes Tetanus Vaccination: > 5 Years Influenza Vaccination: Yes ?: Not : 3 Para: 2 Miscarriage: 0 : 1 Ovarian Cysts: Yes Past Surgical History Abdominal Surgery: Yes (EXP LAP) AICD: No Appendectomy: No Arteriovenous Shunt: No Cardiac Surgery: No Section: Yes Cholecystectomy: No Ear Surgery: No Endocrine Surgery: No Eye Surgery: No Genitourinary Surgery: Yes Gynecologic Surgery: Yes (UTERINE ABLATION: 2016) Insulin Pump: No Joint Replacement: No Neurologic Surgery: Yes Oral Surgery: No Pacemaker: No Thoracic Surgery: No Tonsillectomy: Yes Other Surgery: Yes (colon polyp rempoval) Social History Alcohol Use: No (pt denies) Tobacco Use: Yes (1PPD) Substance Use: Yes (marijuana) Allergies-Medications (Allergen,Severity, Reaction): Coded Allergies: Amoxicillin (Verified Allergy, Severe, VOMITING, 04/09/17) Morphine (Verified Allergy, Severe, Hives , 04/09/17) Penicillin (Verified Allergy, Severe, VOMITING, 04/09/17) Sulfa (Verified Adverse Reaction, Severe, VOMITING, 04/09/17) Reported Meds & Prescriptions Reported Meds & Active Scripts Active Clindamycin (Clindamycin HCl) 300 Mg Cap 300 Mg PO Q6H Reported Lupron Depot Inj Kit (Leuprolide (3 Month) Inj Kit) Unknown Strength Kit Unknown Dose IM Q90D Review of Systems Except as stated in HPI: all other systems reviewed are Neg General / Constitutional: No: Fever Eyes: No: Visual changes HENT: No: Headaches Cardiovascular: No: Chest Pain or Discomfort Respiratory: No: Shortness of Breath Gastrointestinal: No: Abdominal Pain Genitourinary: No: Dysuria Musculoskeletal: No: Pain Physical Exam Narrative GENERAL: alert well appearing female. SKIN: Warm and dry. lymphangitis of the LUE-mild erythema extending from the distal forearm to the axilla region. no identifiable abscess or wound. HEAD: Normocephalic. EYES: No scleral icterus. No injection or drainage. NECK: Supple, trachea midline. No JVD or lymphadenopathy. CARDIOVASCULAR: Regular rate and rhythm without murmurs, gallops, or rubs. RESPIRATORY: Breath sounds equal bilaterally. No accessory muscle use. GASTROINTESTINAL: Abdomen soft, non-tender, nondistended. MUSCULOSKELETAL: No cyanosis, or edema. lymphangitis of the LUE-mild erythema extending from the distal forearm to the axilla region. no identifiable abscess or wound. No edema or tenderness. Mild left axillary lymphadenopathy. BACK: Nontender without obvious deformity. No CVA tenderness. Data Data Last Documented VS Vital Signs Date Time Temp Pulse Resp B/P Pulse Ox O2 Delivery O2 Flow Rate FiO2 04/09/17 17:48 97.8 76 16 130/77 99 Orders Basic Metabolic Panel (Bmp) (04/09/17 16:21) Complete Blood Count With Diff (04/09/17 16:21) Blood Culture (04/09/17 16:21) Iv Access Insert/Monitor (04/09/17 16:21) Lactic Acid (04/09/17 16:21) Labs Laboratory Tests Test 04/09/17 16:35 White Blood Count 11.8 TH/MM3 Red Blood Count 4.51 MIL/MM3 Hemoglobin 14.2 GM/DL Hematocrit 42.5 % Mean Corpuscular Volume 94.3 FL Mean Corpuscular Hemoglobin 31.6 PG Mean Corpuscular Hemoglobin 33.5 % Concent Red Cell Distribution Width 13.4 % Platelet Count 284 TH/MM3 Mean Platelet Volume 7.5 FL Neutrophils (%) (Auto) 69.2 % Lymphocytes (%) (Auto) 23.9 % Monocytes (%) (Auto) 5.0 % Eosinophils (%) (Auto) 1.3 % Basophils (%) (Auto) 0.6 % Neutrophils # (Auto) 8.2 TH/MM3 Lymphocytes # (Auto) 2.8 TH/MM3 Monocytes # (Auto) 0.6 TH/MM3 Eosinophils # (Auto) 0.2 TH/MM3 Basophils # (Auto) 0.1 TH/MM3 CBC Comment DIFF FINAL Differential Comment Sodium Level 137 MEQ/L Potassium Level 3.5 MEQ/L Chloride Level 104 MEQ/L Carbon Dioxide Level 25.8 MEQ/L Anion Gap 7 MEQ/L Blood Urea Nitrogen 12 MG/DL Creatinine 0.68 MG/DL Estimat Glomerular Filtration 97 ML/MIN Rate Random Glucose 75 MG/DL Lactic Acid Level 0.9 mmol/L Calcium Level 8.9 MG/DL [facility] Medical Decision Making Medical Screen Exam Complete: Yes Emergency Medical Condition: Yes Differential Diagnosis Lymphangitis, cellulitis, abscess Narrative Course 36-year-old female presents to the emergency department for evaluation of a red streak in her left forearm beginning today. Patient denies fever or chills. She denies history of IV drug abuse. physical exam is lymphangitis starting at the area of a small abrasion on the distal forearm. There is no evidence of induration or abscess. Patient is afebrile. Nontoxic appearing. CBC: WBC 11.8. BMP unremarkable Lactic acid 0.9 Patient will be discharged home with a perception of clindamycin. Return precautions discussed. Patient is to have close follow-up with her primary care provider in one to 2 days. Patient verbalizes understanding and agrees to plan. Diagnosis Primary Impression: Lymphangitis Referrals: Primary Care Physician Additional Instructions: Take the antibiotics as prescribed. I would like close follow-up in 1-2 days with your primary doctor. Return to the emergency department if he develop new or worsening symptoms such as fever or chills. Scripts Clindamycin 300 Mg [id number] Mg PO Q6H #40 CAP Prov:Noreen Mccoy 04/09/17 Disposition: 01 DISCHARGE HOME Condition: Stable Noreen Mccoy Apr 09, 2017 16:31
[2017-04-09 16:52] LABS: AUTOMATED NEUTROPHIL # 8.2 TH/MM3 (1.8-7.7); BASOPHIL # 0.1 TH/MM3 (0-0.2); BASOPHIL % 0.6 % (0.0-2.0); EOSINOPHIL # 0.2 TH/MM3 (0-0.4); EOSINOPHIL % 1.3 % (0.0-4.0); HEMATOCRIT 42.5 % (35.0-46.0); HEMO FLAGS DIFF FINAL; LYMPH % 23.9 % (9.0-44.0); LYMPHOCYTE # 2.8 TH/MM3 (1.0-4.8); MEAN CELL VOLUME 94.3 FL (80.0-100.0); MEAN CORPUSCULAR HEMOGLOBIN 31.6 PG (27.0-34.0); MEAN CORPUSCULAR HGB CONC 33.5 % (32.0-36.0); NEUT % 69.2 % (16.0-70.0); PLATELET COUNT 284 TH/MM3 (150-450); RED BLOOD COUNT 4.51 MIL/MM3 (4.00-5.30); RED CELL DISTRIBUTION WIDTH 13.4 % (11.6-17.2); WHITE BLOOD COUNT 11.8 TH/MM3 (4.0-11.0)
[2017-04-09 17:10] LABS: BICARBONATE 25.8 MEQ/L (21.0-32.0); POTASSIUM 3.5 MEQ/L (3.5-5.1)
[2017-04-09] MEDS ORDERED: CLIN1CAP6 PO (17:44)
[2017-04-09 17:48] VITALS: BP 130/77; TEMP 97.8
== END 2017-04-09 18:13 | disposition home or self-care (01) ==
LOC: NEPD 14:22
DX: I89.1 Lymphangitis (principal); F17.200 Nicotine dependence, unspecified, uncomplicated; Z87.42 Personal history of other diseases of the female genital tract; Z87.19 Personal history of other diseases of the digestive system; Z86.69 Personal history of other diseases of the nervous system and sense organs
CPT/HCPCS: 80048; 83605; 85025; 87040; 99283

== ENCOUNTER 2017-05-04 14:13 | Emergency (ER) | payer MEDICAID ==
[~2017-05-04] VITALS: Ht 160 cm; Wt 45.0 kg
[~2017-05-04 14:13] MED LIST changes: +CLIN1CAP6 PO; -ZOFR4TAB PO
[2017-05-04 14:32] VITALS: BP 144/84; PULSE 91; RESP 20; TEMP 100.3; O2SAT 94
[2017-05-04] MEDS ORDERED: PROCHLORPERAZINE INJ 10 MG/2 ML VIAL IV PUSH ONE (15:00)
[2017-05-04] MEDS ORDERED: KETOROLAC TROMETHAMINE 30 MG/ML (IVP) VIAL IV PUSH ONE (15:00)
[2017-05-04] MEDS ORDERED: SODIUM CHLOR 0.9% 1000 ML INJ 1,000 ML IV ONE (15:00)
[2017-05-04] MEDS ORDERED: ONDANSETRON HCL 4 MG/2 ML VIAL IV PUSH ONE (15:00)
[2017-05-04] MEDS ORDERED: diphenhydrAMINE HCL 50 MG/ML VIAL IV PUSH ONE (15:00)
--- NOTE | 2017-05-04 15:06 | PD ---
HPI Chief Complaint: Abdominal Pain Time Seen by Provider: 14:38 Travel History International Travel<30 days: No Contact w/Intl Traveler<30days: No Traveled to known affect area: No History of Present Illness HPI 36 year-old woman history of chronic recurrent abdominal pain, attributed to gastroparesis endometriosis ovarian cysts and hiatal hernia, as well as possible marijuana hyperemesis syndrome according to records, presents to the emergency department writhing in the bed crying complaining of abdominal pain that she attributes to endometriosis. She states she follows at [facility]. So she 's had multiple laser procedures for endometriosis in the past. Symptoms were worsening today and are now excruciating. History Past Medical History Narrative Medical Chronic recurrent abdominal pain with history of gastroparesis, endometriosis, ovarian cyst, hiatal hernia : 3 Para: 2 Social History Alcohol Use: No (pt denies) Tobacco Use: Yes (1PPD) Allergies-Medications (Allergen,Severity, Reaction): Coded Allergies: Amoxicillin (Verified Allergy, Severe, VOMITING, 04/09/17) Morphine (Verified Allergy, Severe, Hives , 04/09/17) Penicillin (Verified Allergy, Severe, VOMITING, 04/09/17) Sulfa (Verified Adverse Reaction, Severe, VOMITING, 04/09/17) Reported Meds & Prescriptions Reported Meds & Active Scripts Active Clindamycin (Clindamycin HCl) 300 Mg Cap 300 Mg PO Q6H Reported Lupron Depot Inj Kit (Leuprolide (3 Month) Inj Kit) Unknown Strength Kit Unknown Dose IM Q90D Review of Systems Except as stated in HPI: all other systems reviewed are Neg Physical Exam Narrative GENERAL: 36 year-old woman, uncomfortable, the position on the bed and tearful. SKIN: Focused skin assessment warm/dry. She has unusual purple discoloration to her back in a reticular pattern NECK: Trachea midline. No JVD. CARDIOVASCULAR: Warm and well perfused. RESPIRATORY: Normal rate and effort. GASTROINTESTINAL: Scaphoid and flat. MUSCULOSKELETAL: No obvious deformities. Data Data Last Documented VS Vital Signs Date Time Temp Pulse Resp B/P Pulse Ox O2 Delivery O2 Flow Rate FiO2 05/04/17 14:32 100.3 91 20 144/84 94 Orders Ketorolac Inj (Toradol Inj) (05/04/17 15:00) Sodium Chlor 0.9% 1000 Ml Inj (Ns 1000 M (05/04/17 15:00) Ondansetron Inj (Zofran Inj) (05/04/17 15:00) Prochlorperazine Inj (Compazine Inj) (05/04/17 15:00) Diphenhydramine Inj (Benadryl Inj) (05/04/17 15:00) MDM Medical Decision Making Medical Screen Exam Complete: Yes Emergency Medical Condition: Yes Differential Diagnosis Chronic recurrent abdominal pain, endometriosis, marijuana hyperemesis syndrome , sick with vomiting, opiate withdrawal, other Narrative Course 36 year-old woman of multiple admissions for recurrent abdominal pain she related to endometriosis. She does have opiates filled from [facility]. She states she goes there for her endometriosis. She's had recurrent trouble with the abdominal pain. She's had multiple CT scans in the past couple months along the been negative. She appears very dramatic, writhing in bed, screaming out, complaining of abdominal pain. She has chavez on her back she attributes to hot baths reasonable possibility of marijuana hyperemesis syndrome. She's been positive for marijuana every time she's been checked in the past several months. She states she has talked about this before, is quick, and intermittent change or pain. She states only that it takes with her pain is IV Dilaudid and Zofran. I told her that while would be happy or to get her pain under control, I will not prescribe IV opiates for chronic recurrent abdominal pain. I explained that this is because of the long-term adverse effects associated with IV opiates for recurrent abdominal pain. After I left the room , she stopped crying and wailing, collected her things and walked out. Diagnosis Primary Impression: Drug-seeking behavior Additional Impression: Recurrent abdominal pain Disposition: 07 AGAINST MEDICAL ADVICE Chandler Tovar MD May 04, 2017 15:06
== END 2017-05-04 15:00 | disposition left against medical advice (07) ==
LOC: NEPD 14:13
DX: R10.9 Unspecified abdominal pain (principal); K31.84 Gastroparesis; F17.200 Nicotine dependence, unspecified, uncomplicated; Z79.899 Other long term (current) drug therapy; Z88.5 Allergy status to narcotic agent; Z88.0 Allergy status to penicillin; Z76.5 Malingerer [conscious simulation]; Z88.2 Allergy status to sulfonamides
CPT/HCPCS: 99283

== ENCOUNTER 2017-05-24 10:13 | Emergency (ER) | payer MEDICAID ==
[~2017-05-24] VITALS: Ht 160 cm; Wt 47.0 kg
[2017-05-24 10:27] VITALS: BP 162/87; PULSE 105; RESP 18; TEMP 99.5; O2SAT 95
[2017-05-24] MEDS ORDERED: KETOROLAC TROMETHAMINE 60 MG/2 ML (IM) VIAL IM ONE (11:15)
--- NOTE | 2017-05-24 11:21 | PD ---
HPI Chief Complaint: GI Complaint Time Seen by Provider: 11:07 Travel History International Travel<30 days: No Contact w/Intl Traveler<30days: No Traveled to known affect area: No History of Present Illness HPI 37-year-old female complains of back pain and abdominal pain nausea vomiting. Patient has history of chronic recurrent abdominal pain and back pain, gastroparesis, endometriosis, ovarian cyst and hiatal hernia. Patient has been to the emergency room multiple times in the past for the same problem. Patient states that she has been to [facility] and has been taking Dilaudid for pain. Patient states that she has persistent pain despite the medication. Patient denies any headache. Patient denies any chest pain or shortness of breath. Patient denies any fever chills. Patient denies any focal weakness or numbness of the extremity. Patient has been to the emergency room multiple times in the past and workups has been negative. PFSH Past Medical History Hx Anticoagulant Therapy: No Arthritis: No Asthma: No Autoimmune Disease: No Blood Disorders: No Anxiety: No Depression: No Heart Rhythm Problems: No Cancer: Yes (MELANOMA?) Cardiovascular Problems: No High Cholesterol: No Chemotherapy: No Chest Pain: No Congestive Heart Failure: No COPD: No Cerebrovascular Accident: No Diabetes: No Diminished Hearing: No Endocrine: No Gastrointestinal Disorders: Yes (GASTROPARESIS) GERD: Yes Glaucoma: No Genitourinary: No Headaches: No Hepatitis: No Hiatal Hernia: Yes Hypertension: No Immune Disorder: No Implanted Vascular Access Dvce: No Kidney Stones: No Musculoskeletal: No Neurologic: Yes Psychiatric: No Reproductive: Yes (ENDOMETRIOSIS) Respiratory: No Immunizations Current: No Migraines: No Myocardial Infarction: No Radiation Therapy: No Renal Failure: Yes (ARF) Seizures: No Sickle Cell Disease: No Sleep Apnea: No Thyroid Disease: No Ulcer: Yes Influenza Vaccination: No ?: Not LMP: pt had ablasion, no period : 3 Para: 2 Miscarriage: 0 : 1 Ovarian Cysts: Yes Past Surgical History Abdominal Surgery: Yes (EXP LAP) AICD: No Appendectomy: No Arteriovenous Shunt: No Cardiac Surgery: No Section: Yes Cholecystectomy: No Ear Surgery: No Endocrine Surgery: No Eye Surgery: No Genitourinary Surgery: Yes Gynecologic Surgery: Yes (UTERINE ABLATION: 2016) Insulin Pump: No Joint Replacement: No Neurologic Surgery: Yes Oral Surgery: No Pacemaker: No Thoracic Surgery: No Tonsillectomy: Yes Other Surgery: Yes (colon polyp rempoval) Social History Alcohol Use: No (pt denies) Tobacco Use: No (QUIT) Substance Use: Yes (marijuana) Allergies-Medications (Allergen,Severity, Reaction): Coded Allergies: amoxicillin (Unverified Allergy, Severe, VOMITING, 05/24/17) morphine (Unverified Allergy, Severe, Hives , 05/24/17) penicillin G (Unverified Allergy, Severe, VOMITING, 05/24/17) Sulfa (Sulfonamide Antibiotics) (Unverified Adverse Reaction, Severe, VOMITING, 05/24/17) Reported Meds & Prescriptions Reported Meds & Active Scripts Active Review of Systems General / Constitutional: No: Fever Eyes: No: Visual changes HENT: No: Headaches Cardiovascular: No: Chest Pain or Discomfort Respiratory: No: Shortness of Breath Gastrointestinal: Positive: Abdominal Pain Genitourinary: No: Dysuria Musculoskeletal: Positive: Pain Skin: No Rash Neurologic: No: Weakness Psychiatric: No: Depression Endocrine: No: Polydipsia Hematologic/Lymphatic: No: Easy Bruising Physical Exam Narrative GENERAL: Well-nourished, well-developed patient. SKIN: Focused skin assessment warm/dry. HEAD: Normocephalic. EYES: No scleral icterus. No injection or drainage. NECK: Supple, trachea midline. No JVD or lymphadenopathy. CARDIOVASCULAR: Regular rate and rhythm without murmurs, gallops, or rubs. RESPIRATORY: Breath sounds equal bilaterally. No accessory muscle use. GASTROINTESTINAL: Abdomen soft, non-tender, nondistended. MUSCULOSKELETAL: No cyanosis, or edema. BACK: Nontender without obvious deformity. No CVA tenderness. Neurologic exam normal. Data Data Last Documented VS Vital Signs Date Time Temp Pulse Resp B/P (MAP) Pulse Ox O2 Delivery O2 Flow Rate FiO2 05/24/17 10:27 99.5 105 18 162/87 (112) 95 Room Air Orders Orders Ketorolac Inj (Toradol Inj) (05/24/17 11:15) Hydroxyzine Hcl Inj (Vistaril Inj) (05/24/17 11:15) MDM Medical Decision Making Medical Screen Exam Complete: Yes Emergency Medical Condition: Yes Differential Diagnosis Differential diagnosis including opiate withdrawal symptoms, drug-seeking behavior, recurrent chronic pain. Narrative Course 37-year-old female with recurrent abdominal pain and extremity pain and back pain. Multiple workup in the emergency room recently has been negative. Patient has been seen at [facility] and states that she is on Dilaudid for pain. Physical exam today shows no acute process. Vital signs stable. Patient was offered Toradol IM injection and Vistaril IM injection. Patient refused and walked out. Patient was observed walking out without any distress and no problem with ambulation and no pain. Diagnosis Primary Impression: Chronic abdominal pain Patient Instructions: General Instructions Additional Instructions: Patient left after being seen. Med/Other Pt SpecificInfo: No Change to Meds Disposition: 07 AGAINST MEDICAL ADVICE Condition: Stable Konrad Norris MD May 24, 2017 11:21
== END 2017-05-24 11:22 | disposition left against medical advice (07) ==
LOC: PHED 10:13
DX: R10.9 Unspecified abdominal pain (principal); G89.29 Other chronic pain; K31.84 Gastroparesis
CPT/HCPCS: 99281

== ENCOUNTER 2017-09-02 07:10 | Emergency (ER) | payer MEDICAID ==
[~2017-09-02] VITALS: Ht 160 cm; Wt 45.0 kg
[2017-09-02 07:13] VITALS: BP 147/99; PULSE 98; RESP 20; TEMP 98.2; O2SAT 98
--- NOTE | 2017-09-02 07:40 | PD ---
HPI Chief Complaint: Back/ Neck Pain or Injury Time Seen by Provider: 07:32 Travel History International Travel<30 days: No Contact w/Intl Traveler<30days: No Traveled to known affect area: No History of Present Illness HPI The patient was seen and examined in the presence of the nurse. At no point in time was I in the room without the nurse present. This patient complains of back pain. Duration is 4 weeks. Location is right sided pain underneath her right scapula. She denies injury. It is not pleuritic. She is crying and writhing about on the bed in position. This is The same way she presented last several visits. This is her 34th visit in the last 2 years. She has chronic pain. She does not see a local physician. She denies fever or productive cough. She is not short of breath. Severity described as moderate to severe. PFSH Past Medical History Hx Anticoagulant Therapy: No Arthritis: No Asthma: No Autoimmune Disease: No Blood Disorders: No Anxiety: No Depression: No Heart Rhythm Problems: No Cancer: Yes (MELANOMA?) Cardiovascular Problems: No High Cholesterol: No Chemotherapy: No Chest Pain: No Congestive Heart Failure: No COPD: No Cerebrovascular Accident: No Diabetes: No Diminished Hearing: No Endocrine: No Gastrointestinal Disorders: Yes (GASTROPARESIS) GERD: Yes Glaucoma: No Genitourinary: No Headaches: No Hepatitis: No Hiatal Hernia: Yes Hypertension: No Immune Disorder: No Implanted Vascular Access Dvce: No Kidney Stones: No Musculoskeletal: No Neurologic: Yes Psychiatric: No Reproductive: Yes (ENDOMETRIOSIS) Respiratory: No Immunizations Current: No Migraines: No Myocardial Infarction: No Radiation Therapy: No Renal Failure: Yes (ARF) Seizures: No Sickle Cell Disease: No Sleep Apnea: No Thyroid Disease: No Ulcer: Yes Tetanus Vaccination: > 5 Years Influenza Vaccination: No ?: Not : 3 Para: 2 Miscarriage: 0 : 1 Ovarian Cysts: Yes Past Surgical History Abdominal Surgery: Yes (EXP LAP) AICD: No Appendectomy: No Arteriovenous Shunt: No Cardiac Surgery: No Section: Yes Cholecystectomy: No Ear Surgery: No Endocrine Surgery: No Eye Surgery: No Genitourinary Surgery: Yes Gynecologic Surgery: Yes (UTERINE ABLATION: 2016) Insulin Pump: No Joint Replacement: No Neurologic Surgery: Yes Oral Surgery: No Pacemaker: No Thoracic Surgery: No Tonsillectomy: Yes Other Surgery: Yes (colon polyp rempoval) Social History Alcohol Use: No (pt denies) Tobacco Use: No (vape) Substance Use: Yes (marijuana) Allergies-Medications (Allergen,Severity, Reaction): Coded Allergies: amoxicillin (Unverified Allergy, Severe, VOMITING, 05/24/17) morphine (Unverified Allergy, Severe, Hives , 05/24/17) penicillin G (Unverified Allergy, Severe, VOMITING, 05/24/17) Sulfa (Sulfonamide Antibiotics) (Unverified Adverse Reaction, Severe, VOMITING, 05/24/17) Reported Meds & Prescriptions Reported Meds & Active Scripts Active Review of Systems General / Constitutional: No: Fever Eyes: No: Visual changes HENT: No: Headaches Cardiovascular: No: Chest Pain or Discomfort Respiratory: No: Shortness of Breath Gastrointestinal: No: Abdominal Pain Genitourinary: No: Dysuria Musculoskeletal: Positive: Pain Skin: No Rash Neurologic: No: Weakness Psychiatric: No: Depression Endocrine: No: Polydipsia Hematologic/Lymphatic: No: Easy Bruising Physical Exam Narrative GENERAL: Thin cachectic highly emotional well-developed patient SKIN: Focused skin assessment reveals no rash and nodules. Skin is Warm and dry. HEAD: Atraumatic. Normocephalic. EYES: Pupils equal and round. No scleral icterus. No injection or drainage. ENT: No nasal bleeding or discharge. Mucous membranes pink and moist. NECK: Trachea midline. No JVD. CARDIOVASCULAR: Regular rate and rhythm. No murmur appreciated. RESPIRATORY: No accessory muscle use. Clear to auscultation. Breath sounds equal bilaterally. GASTROINTESTINAL: Abdomen soft, non-tender, nondistended. Hepatic and splenic margins not palpable. MUSCULOSKELETAL: No obvious deformities. No clubbing. No cyanosis. No edema. Examination the back reveals no objective abnormality. No tenderness or swelling or discoloration. NEUROLOGICAL: Awake and alert. No obvious cranial nerve deficits. Motor grossly within normal limits. Normal speech. PSYCHIATRIC: Depressed and anxious seeming mood and affect; insight and judgment questionable . Data Data Last Documented VS Vital Signs Date Time Temp Pulse Resp B/P (MAP) Pulse Ox O2 Delivery O2 Flow Rate FiO2 09/02/17 07:28 18 09/02/17 07:13 98.2 98 147/99 (115) 98 Orders Orders Ed Urine Pregnancytest Poc (09/02/17 07:32) Chest, Single Ap (09/02/17 ) MDM Medical Decision Making Medical Screen Exam Complete: Yes Emergency Medical Condition: Yes Medical Record Reviewed: Yes Differential Diagnosis Drug-seeking behavior, muscle strain, pulmonary lesion Narrative Course I have reviewed the patient's electronic medical record. She's been here 34 times in last 2 years, most of them for abdominal pain. Was diagnosed with drug -seeking behavior the last 2 visits. Urine was ordered but she never did it I reviewed her chest x-ray which was normal Patient apparently got dressed and snuck out of the emergency department and never said anything to anybody. She is AMA. Presentation is consistent with malingering and drug-seeking behavior as well. Diagnosis Primary Impression: Drug-seeking behavior Additional Impression: Malingering Disposition: 07 AGAINST MEDICAL ADVICE Murali Bello MD Sep 02, 2017 07:40
--- NOTE | 2017-09-02 07:53 | RADRPT ---
EXAM DATE/TIME: 09/02/2017 07:40 [facility] COMPARISON: CHEST PA & LAT, June 09, 2016, 6:17. INDICATIONS : Lower back pain, shortness of breath started today. MEDICAL HISTORY : Gastroparesis. SURGICAL HISTORY : Hysterectomy. ENCOUNTER: Initial ACUITY: 1 day PAIN SCORE: 0/10 LOCATION: Bilateral chest FINDINGS: A single view of the chest demonstrates the lungs to be symmetrically aerated without evidence of mas s, infiltrate or effusion. The cardiomediastinal contours are unremarkable. Osseous structures are intact. CONCLUSION: No evidence of acute cardiopulmonary disease. Gibson Dixon MD on September 02, 2017 at 7:51 Board Certified Radiologist. This report was verified electronically.
== END 2017-09-02 08:36 | disposition left against medical advice (07) ==
LOC: NEPE 07:10
DX: M54.9 Dorsalgia, unspecified (principal); G89.29 Other chronic pain; K31.84 Gastroparesis; K21.9 Gastro-esophageal reflux disease without esophagitis; N17.9 Acute kidney failure, unspecified; Z76.5 Malingerer [conscious simulation]; Z53.21 Procedure and treatment not carried out due to patient leaving prior to being seen by health care provider; Z88.0 Allergy status to penicillin; Z88.5 Allergy status to narcotic agent
CPT/HCPCS: 71010; 99283

== ENCOUNTER 2018-03-11 10:40 | Emergency (ER) | payer SELFPAY ==
[~2018-03-11] VITALS: Ht 160 cm; Wt 47.7 kg
[2018-03-11 10:44] VITALS: BP 133/82; PULSE 99; RESP 16; TEMP 98.6; O2SAT 97
[2018-03-11 12:12] VITALS: BP 122/83; PULSE 103; RESP 20; O2SAT 95
[2018-03-11] MEDS ORDERED: ZOFR4TAB PO (12:22)
[2018-03-11] MEDS ORDERED: SODIUM CHLOR 0.9% 1000 ML INJ 800 ML IV ONE (12:25)
[2018-03-11] MEDS ORDERED: SODIUM CHLOR 0.9% 1000 ML INJ 1,000 ML IV ONE (12:25)
[2018-03-11 12:30] VITALS: BP 122/83; PULSE 85; RESP 20; O2SAT 98
[2018-03-11] MEDS ORDERED: LORazepam 2 MG/ML VIAL IV PUSH ONE (12:30)
[2018-03-11] MEDS ORDERED: diphenhydrAMINE HCL 50 MG/ML VIAL IV PUSH ONE (12:30)
[2018-03-11] MEDS ORDERED: PROCHLORPERAZINE INJ 10 MG/2 ML VIAL IV PUSH ONE (12:30)
[2018-03-11 13:25] VITALS: BP 97/58; PULSE 83; RESP 16; O2SAT 94
--- NOTE | 2018-03-11 13:38 | PD ---
HPI . Back and abdominal pain Chief Complaint: Suicide Ideation/Attempt Time Seen by Provider: 12:13 Travel History International Travel<30 days: No Contact w/Intl Traveler<30days: No Traveled to known affect area: No History of Present Illness HPI This patient presents with a chief complaint of back and abdominal pain. She has a family member here with her. The majority of the history is obtained from the family member. She has had chronic abdominal pain for 20+ years. The etiology of her abdominal pain is attributed to endometriosis. She has had uterine ablation. She has also had an appendectomy. Despite this, she continues to have episodic abdominal and back pain. The patient reports that the only thing that helps her is Dilaudid. Her associated symptoms include poor appetite, nausea and vomiting. She states that her chronic pain is "driving her crazy." The pain is described as severe. She was noted to have some changes on her back. Her family member reports that these are chronic. The skin changes have been noted at [facility]. The etiology is unknown. PFSH Past Medical History Hx Anticoagulant Therapy: No Arthritis: No Asthma: No Autoimmune Disease: No Blood Disorders: No Anxiety: No Depression: No Heart Rhythm Problems: No Cancer: Yes (MELANOMA?) Cardiovascular Problems: No High Cholesterol: No Chemotherapy: No Chest Pain: No Congestive Heart Failure: No COPD: No Cerebrovascular Accident: No Diabetes: No Diminished Hearing: No Endocrine: No Gastrointestinal Disorders: Yes (GASTROPARESIS) GERD: Yes Glaucoma: No Genitourinary: No Headaches: No Hepatitis: No Hiatal Hernia: Yes Hypertension: No Immune Disorder: No Implanted Vascular Access Dvce: No Kidney Stones: No Musculoskeletal: No Neurologic: Yes Psychiatric: No Reproductive: Yes (ENDOMETRIOSIS) Respiratory: No Immunizations Current: No Migraines: No Myocardial Infarction: No Radiation Therapy: No Renal Failure: Yes (ARF) Seizures: No Sickle Cell Disease: No Sleep Apnea: No Thyroid Disease: No Ulcer: Yes Tetanus Vaccination: > 5 Years Influenza Vaccination: No ?: Not LMP: 2016 : 3 Para: 2 Miscarriage: 0 : 2 Ectopic : No Ovarian Cysts: No Dilation and Curettage (D&C): No Tubal Ligation: No Past Surgical History Abdominal Surgery: Yes (EXP LAP) AICD: No Appendectomy: No Arteriovenous Shunt: No Cardiac Surgery: No Section: Yes Cholecystectomy: Yes Ear Surgery: No Endocrine Surgery: No Eye Surgery: No Genitourinary Surgery: Yes Gynecologic Surgery: Yes (ABLATION) Hysterectomy: No (ABLATION) Insulin Pump: No Joint Replacement: No Neurologic Surgery: Yes Oral Surgery: No Pacemaker: No Thoracic Surgery: No Tonsillectomy: Yes Other Surgery: Yes (RECONSTRUCTIVE FACIAL SURGERY ) Social History Alcohol Use: No Tobacco Use: Yes Substance Use: Yes (MARIJUANA, THIS MORNING AROUND 5AM) Allergies-Medications (Allergen,Severity, Reaction): Coded Allergies: amoxicillin (Verified Allergy, Severe, VOMITING, 03/11/18) morphine (Verified Allergy, Severe, Hives , 03/11/18) penicillin G (Verified Allergy, Severe, VOMITING, 03/11/18) Sulfa (Sulfonamide Antibiotics) (Verified Adverse Reaction, Severe, VOMITING, 03/11/18) Reported Meds & Prescriptions Reported Meds & Active Scripts Active Reported Zofran (Ondansetron HCl) 4 Mg Tab 4 Mg PO Q8HR PRN Review of Systems Except as stated in HPI: all other systems reviewed are Neg Physical Exam Narrative GENERAL: Thin, chronically ill-appearing woman who is writhing on the SKIN: warm/dry. She has darkened, mottled skin on her posterior torso. The skin is warm and has good capillary refill. HEAD: Normocephalic. Atraumatic. EYES: Pupils equal and round. Extraocular movements are intact. ENT: Mucous membranes pink and moist. Extremely poor dentition. NECK: Supple. Full range of motion without pain.. CARDIOVASCULAR: Regular rate and rhythm. Heart sounds were normal. RESPIRATORY: No accessory muscle use. Clear to auscultation. Breath sounds equal bilaterally. GASTROINTESTINAL: Abdomen soft. Diffuse tenderness. Bowel sounds present. Nondistended. MUSCULOSKELETAL: No obvious deformities. Normal muscle tone. NEUROLOGICAL: Awake and alert. No obvious cranial nerve deficits. Motor grossly within normal limits. Normal speech. PSYCHIATRIC: Histrionic. Yelling "help me." Data Data Last Documented VS Vital Signs Date Time Temp Pulse Resp B/P (MAP) Pulse Ox O2 Delivery O2 Flow Rate FiO2 03/11/18 15:44 71 18 141/83 (102) 97 Room Air 03/11/18 10:44 98.6 Orders Orders Sepsis Workup Initiated (03/11/18 ) Complete Blood Count With Diff (03/11/18 12:25) Comprehensive Metabolic Panel (03/11/18 12:25) Lactic Acid Sepsis Protocol (03/11/18 12:25) Urinalysis - C+S If Indicated (03/11/18 12:25) Blood Culture (03/11/18 12:25) Chest, Single Ap (03/11/18 12:25) Blood Glucose (03/11/18 12:25) Ecg Monitoring (03/11/18 12:25) Iv Access Insert/Monitor (03/11/18 12:25) Cath For Specimen (03/11/18 12:25) Oximetry (03/11/18 12:25) Oxygen Administration (03/11/18 12:25) Ct Abd/Pel W Iv Contrast(Rout) (03/11/18 12:25) Sodium Chlor 0.9% 1000 Ml Inj (Ns 1000 M (03/11/18 12:25) Sodium Chlor 0.9% 1000 Ml Inj (Ns 1000 M (03/11/18 12:25) Ed Urine Pregnancytest Poc (03/11/18 12:25) Lorazepam Inj (Ativan Inj) (03/11/18 12:30) Diphenhydramine Inj (Benadryl Inj) (03/11/18 12:30) Prochlorperazine Inj (Compazine Inj) (03/11/18 12:30) Drug Screen, Random Urine (03/11/18 12:25) Iodixanol 320 Inj (Rad Ct) (Visipaque 32 (03/11/18 16:12) Ed Discharge Order (03/11/18 19:01) Labs Laboratory Tests Test 03/11/18 12:32 03/11/18 13:17 03/11/18 15:46 03/11/18 17:45 White Blood Count 17.5 TH/MM3 Red Blood Count 5.51 MIL/MM3 Hemoglobin 17.3 GM/DL Hematocrit 50.4 % Mean Corpuscular Volume 91.4 FL Mean Corpuscular Hemoglobin 31.4 PG Mean Corpuscular Hemoglobin Concent 34.4 % Red Cell Distribution Width 13.1 % Platelet Count 284 TH/MM3 Mean Platelet Volume 8.6 FL Neutrophils (%) (Auto) 91.5 % Lymphocytes (%) (Auto) 4.5 % Monocytes (%) (Auto) 3.8 % Eosinophils (%) (Auto) 0.0 % Basophils (%) (Auto) 0.2 % Neutrophils # (Auto) 16.0 TH/MM3 Lymphocytes # (Auto) 0.8 TH/MM3 Monocytes # (Auto) 0.7 TH/MM3 Eosinophils # (Auto) 0.0 TH/MM3 Basophils # (Auto) 0.0 TH/MM3 CBC Comment DIFF FINAL Differential Comment Blood Urea Nitrogen 20 MG/DL Creatinine 1.46 MG/DL Random Glucose 125 MG/DL Total Protein 10.2 GM/DL Albumin 5.7 GM/DL Calcium Level 10.8 MG/DL Alkaline Phosphatase 70 U/L Aspartate Amino Transf (AST/SGOT) 15 U/L Alanine Aminotransferase (ALT/SGPT) 18 U/L Total Bilirubin 1.0 MG/DL Sodium Level 133 MEQ/L Potassium Level 3.4 MEQ/L Chloride Level 95 MEQ/L Carbon Dioxide Level 23.8 MEQ/L Anion Gap 14 MEQ/L Estimat Glomerular Filtration Rate 40 ML/MIN Lactic Acid Level 3.4 mmol/L 2.8 mmol/L Urine Color Tish Urine Turbidity HAZY Urine pH 5.0 Urine Specific [place] 1.034 Urine Protein >=500 mg/dL Urine Glucose (UA) 50 mg/dL Urine Ketones TRACE mg/dL Urine Occult Blood SMALL Urine Nitrite NEG Urine Bilirubin NEG Urine Urobilinogen 2.0 mg/dL Urine Leukocyte Esterase NEG Urine RBC 1 /hpf Urine WBC 1 /hpf Urine Squamous Epithelial Cells 3 /hpf Urine Hyaline Casts 19 /lpf Urine Mucus MANY /lpf Microscopic Urinalysis Comment CULT NOT INDICATED Urine Opiates Screen NEG Urine Barbiturates Screen NEG Urine Amphetamines Screen NEG Urine Benzodiazepines Screen NEG Urine Cocaine Screen NEG Urine Cannabinoids Screen POS MDM Medical Decision Making Medical Screen Exam Complete: Yes Emergency Medical Condition: Yes Medical Record Reviewed: Yes (This patient has had numerous previous visits to the emergency department. She has left here several times AMA. She has been diagnosed in the past with drug-seeking behavior.) Differential Diagnosis Differential diagnosis of abdominal pain includes but is not limited to gastritis, pancreatitis, hepatitis, gastroenteritis, constipation, urinary retention, peptic ulcer disease, diverticulitis or appendicitis Narrative Course This patient presents with exacerbation of chronic abdominal and back pain. E-Forcse has been queried. She has received at least 5 different narcotic prescriptions from 5 different providers in the past year. CBC & BMP Diagram 03/11/18 12:32 Total Protein 10.2 H, Albumin 5.7 H, Calcium Level 10.8 H, Alkaline Phosphatase 70, Aspartate Amino Transf (AST/SGOT) 15, Alanine Aminotransferase (ALT/SGPT) 18 , Total Bilirubin 1.0 UA is contaminated. Lactic acid 3.4. She is receiving a 2 L fluid bolus. Her lactic acid was in for recheck. Repeat lactic acid is 2.8. She meets SIRS criteria but not septic criteria. She has no source. Last Impressions Chest X-Ray 03/11/18 1225 Signed Impressions: CONCLUSION: Negative examination. Abdomen/Pelvis CT 03/11/181224 Signed Impressions: CONCLUSION: 1. Stable cystic mass in the right adnexa region. 2. There is no free fluid. 3. I do not see any other etiology for the abdominal pain. I suspect that she is withdrawing from opiates. Drug screen is positive only for THC. She will be discharged home with instructions to follow-up with her primary care provider or with pain management for ongoing treatment of her chronic abdominal pain. Sepsis Criteria SIRS Criteria (2 or more): Heart rate over 90, WBC > 85362, < 4000 or > 10% bands Severe Sepsis (+one): Lactate >2 Criteria Outcome: Meets SIRS criteria Diagnosis Primary Impression: Chronic abdominal pain Additional Impressions: Drug-seeking behavior Leukocytosis Qualified Codes: D72.829 - Elevated white blood cell count, unspecified Patient Instructions: Chronic Abdominal Pain (ED), General Instructions Additional Instructions: Follow-up with your primary care provider for ongoing treatment of your chronic pain Disposition: 01 DISCHARGE HOME Condition: Stable Tiffanie Britt MD Mar 11, 2018 13:38
[2018-03-11 13:39] LABS: BASOPHIL % 0.2 % (0.0-2.0); HEMATOCRIT 50.4 % (35.0-46.0); HEMOGLOBIN 17.3 GM/DL (11.6-15.3); LYMPH % 4.5 % (9.0-44.0); LYMPHOCYTE # 0.8 TH/MM3 (1.0-4.8); MEAN CELL VOLUME 91.4 FL (80.0-100.0); MEAN CORPUSCULAR HEMOGLOBIN 31.4 PG (27.0-34.0); MEAN CORPUSCULAR HGB CONC 34.4 % (32.0-36.0); MEAN PLATELET VOLUME 8.6 FL (7.0-11.0); MONO % 3.8 % (0.0-8.0); MONOCYTE # 0.7 TH/MM3 (0-0.9); NEUT % 91.5 % (16.0-70.0); PLATELET COUNT 284 TH/MM3 (150-450); RED BLOOD COUNT 5.51 MIL/MM3 (4.00-5.30); RED CELL DISTRIBUTION WIDTH 13.1 % (11.6-17.2); WHITE BLOOD COUNT 17.5 TH/MM3 (4.0-11.0)
[2018-03-11 14:01] LABS: ALKALINE PHOSPHATASE 70 U/L (45-117); TOTAL PROTEIN 10.2 GM/DL (6.4-8.2)
[2018-03-11 14:04] LABS: LACTIC ACID SEPSIS PROTOCOL 3.4 mmol/L (0.4-2.0)
[2018-03-11 14:13] LABS: ALBUMIN 5.7 GM/DL (3.4-5.0); ALT (GPT) 18 U/L (10-53); AST (GOT) 15 U/L (15-37); BICARBONATE 23.8 MEQ/L (21.0-32.0); BLOOD UREA NITROGEN 20 MG/DL (7-18); CALCIUM 10.8 MG/DL (8.5-10.1); CHLORIDE 95 MEQ/L (98-107); CREATININE 1.46 MG/DL (0.50-1.00); GLOMERULAR FILTRATION RATE 40 ML/MIN (>89); GLUCOSE,RANDOM 125 MG/DL (74-106); SODIUM (NA) 133 MEQ/L (136-145)
--- NOTE | 2018-03-11 14:23 | RADRPT ---
EXAM DATE: 03/11/2018 2:16 PM EDT AGE/SEX: 37 years / Female INDICATIONS: Shortness of breath. CLINICAL DATA: This is the patient's initial encounter. Patient reports that signs and symptoms have been present for 1 day and indicates a pain score of Nonresponsive. MEDICAL/SURGICAL HISTORY: Non-responsive. Non-responsive. COMPARISON: [facility] – [place], CHEST SINGLE AP, 09/02/2017. . FINDINGS: A single AP view of the chest demonstrates the lungs to be symmetrically aerated without evidence of mass, infiltrate or effusion. The cardiomediastinal contours are unremarkable. Osseous structures a re intact. CONCLUSION: Negative examination. Electronically signed by: Santos Quiroga MD 03/11/2018 2:22 PM EDT
[2018-03-11 15:44] VITALS: BP 141/83; PULSE 71; RESP 18; O2SAT 97
[2018-03-11] MEDS ORDERED: IODIXANOL 320 MG/ML 50 ML VIAL (for Rad CT) IVCONTRAST ONE (16:12)
[2018-03-11 16:18] LABS: BLOOD, URINE SMALL (NEG); GLUCOSE,URINE 50 mg/dL (NEG); HYALINE CAST, URINE 19 /lpf (RARE); KETONE, URINE TRACE mg/dL (NEG); MUCUS URINE MANY /lpf (OCC); NITRITE,URINE NEG (NEG); SQUAMOUS EPITHELIAL CELL URINE 3 /hpf (0-5); URINE COLOR Amber (YELLW/STRAW); URINE LEUKOCYTE ESTERASE NEG (NEG)
[2018-03-11 16:21] LABS: BILIRUBIN, URINE NEG (NEG)
--- NOTE | 2018-03-11 16:34 | RADRPT ---
EXAM DATE: 03/11/2018 4:16 PM EDT AGE/SEX: 37 years / Female INDICATIONS: Abdominal pain. CLINICAL DATA: This is the patient's initial encounter. Patient reports that signs and symptoms have been present for 1 day and indicates a pain score of 4/10. MEDICAL/SURGICAL HISTORY: Gastroparesis. Ulcers. Hernia, endometriosis, . Hysterectom y. Cholecystectomy. ORAL CONTRAST: Prescribed oral contrast ingested. RADIATION DOSE: 4.52 CTDI (mGy) COMPARISON: [facility] – [place] ABDOMEN & PELVIS W CONTRAST, 02/13/2017. . TECHNIQUE: Multiple contiguous axial images were obtained through the abdomen and pelvis following b olus infusion of 50 ml Visipaque 320 (iodixanol) nonionic water-soluble contrast as a single exam d ose. Prescribed oral contrast ingested. Using automated exposure control and adjustment of the mA an d/or kV according to patient size, the radiation dose was kept as low as reasonably achievable to obt ain optimal diagnostic quality images. FINDINGS: The lower lungs are clear. Liver and spleen are unremarkable Pancreas and adrenals appear normal Gallbladder is unremarkable Symmetrical renal function without renal mass Portions of the colon visualized in the abdomen is unremarkable In the pelvis there is a 3.4 similar cystic mass in the right adnexa region. The left adnexa region i s unremarkable The uterus appears normal There is no free fluid Multiple phlebolith are present in the pelvis The abdominal mercado intact There is no ascites or adenopathy. CONCLUSION: 1. Stable cystic mass in the right adnexa region. 2. There is no free fluid. 3. I do not see any other etiology for the abdominal pain. Electronically signed by: Ascencion Quiroga MD 03/11/2018 4:32 PM EDT
== END 2018-03-11 19:20 | disposition home or self-care (01) ==
LOC: NEPC 10:40
DX: G89.29 Other chronic pain (principal); R10.9 Unspecified abdominal pain; D72.829 Elevated white blood cell count, unspecified; B95.8 Unspecified staphylococcus as the cause of diseases classified elsewhere; M54.9 Dorsalgia, unspecified; Z76.5 Malingerer [conscious simulation]; N19 Unspecified kidney failure; K21.9 Gastro-esophageal reflux disease without esophagitis; Z72.0 Tobacco use; Z85.820 Personal history of malignant melanoma of skin; Z88.0 Allergy status to penicillin; Z88.5 Allergy status to narcotic agent; Z88.2 Allergy status to sulfonamides
CPT/HCPCS: 71045; 74177; 80053; 80307; 81001; 83605; 84703; 85025; 86403; 87040; 87205; 96361; 96374; 96375; 99285; J0780; J1200; J2060; J7030; P9612; Q9967

== ENCOUNTER 2018-03-11 20:02 | Emergency (ER) | payer OTHER ==
[~2018-03-11] VITALS: Ht 160 cm; Wt 50.0 kg
[~2018-03-11 20:02] MED LIST changes: -CLIN1CAP6 PO; -LUPR11.22 IM; +ZOFR4TAB PO
[2018-03-11 20:18] VITALS: BP 91/65; PULSE 96; RESP 18; TEMP 99; O2SAT 98
[2018-03-11] MEDS: DICYCLOMINE HCL 10 MG CAP PO ONE (22:00)
[2018-03-11] MEDS: LORazepam 1 MG TAB PO ONE (22:00)
[2018-03-11] MEDS: METOCLOPRAMIDE HCL 10 MG TAB PO ONE (22:00)
[2018-03-11] MEDS ORDERED: LORazepam 2 MG/ML VIAL IM ONE (22:15)
[2018-03-11] MEDS: ONDANSETRON ODT 4 MG TAB PO PRN (22:32)
[2018-03-11 23:05] VITALS: PULSE 89; RESP 16; O2SAT 96
[2018-03-12] MEDS: DICYCLOMINE HCL 10 MG CAP PO ONE (00:41)
[2018-03-12] MEDS: LORazepam 1 MG TAB PO ONE (00:41)
[2018-03-12] MEDS: METOCLOPRAMIDE HCL 10 MG TAB PO ONE (00:42)
[2018-03-12 00:45] VITALS: BP 140/87; PULSE 82; RESP 16; O2SAT 100
--- NOTE | 2018-03-12 00:58 | PD ---
HPI Chief Complaint: Psychiatric Symptoms Time Seen by Provider: 21:21 Travel History International Travel<30 days: No Contact w/Intl Traveler<30days: No Traveled to known affect area: No History of Present Illness HPI Is a 37-year-old woman, history of chronic initially here with the same, extensive workup revealed a negative CT scan, some leukocytosis, was discharged. Patient states that she was suicidal because of the severe pain that she was in and her sister brought her back for psychiatric evaluation. Extensive workup for the abdominal pain in the past. She was treated for endometriosis. She does smoke marijuana heavily, daily, and treats her symptoms with scalding hot water to her back all suggestive of marijuana hyperemesis syndrome. She has been hospitalized once when she made suicidal statements briefly. She otherwise has never been treated for depression. History Past Medical History Narrative Medical Acute on chronic abdominal pain Tetanus Vaccination: > 5 Years Influenza Vaccination: Yes : 3 Para: 2 Dilation and Curettage (D&C): No Social History Alcohol Use: No Tobacco Use: Yes Allergies-Medications (Allergen,Severity, Reaction): Coded Allergies: amoxicillin (Verified Allergy, Severe, VOMITING, 03/11/18) morphine (Verified Allergy, Severe, Hives , 03/11/18) penicillin G (Verified Allergy, Severe, VOMITING, 03/11/18) Sulfa (Sulfonamide Antibiotics) (Verified Adverse Reaction, Severe, VOMITING, 03/11/18) Reported Meds & Prescriptions Reported Meds & Active Scripts Active Reported Zofran (Ondansetron HCl) 4 Mg Tab 4 Mg PO Q8HR PRN Review of Systems Except as stated in HPI: all other systems reviewed are Neg Physical Exam Narrative GENERAL: 37-year-old woman, pleasant. Intermittently gets fairly histrionic with the screaming crying, but then subsides and is pleasant and easy to talk to. SKIN: Focused skin assessment warm/dry. HEAD: Atraumatic. Normocephalic. EYES: Pupils equal and round. No scleral icterus. No injection or drainage. ENT: No nasal bleeding or discharge. Mucous membranes pink and moist. NECK: Trachea midline. No JVD. CARDIOVASCULAR: Regular rate and rhythm. No murmur appreciated. RESPIRATORY: No accessory muscle use. Clear to auscultation. Breath sounds equal bilaterally. GASTROINTESTINAL: Abdomen soft, non-tender, nondistended. Hepatic and splenic margins not palpable. MUSCULOSKELETAL: No obvious deformities. No clubbing. No cyanosis. No edema. NEUROLOGICAL: Awake and alert. No obvious cranial nerve deficits. Motor grossly within normal limits. Normal speech. PSYCHIATRIC: Sad and tearful, especially when talking about her children. States passive suicidal ideations. Data Data Last Documented VS Vital Signs Date Time Temp Pulse Resp B/P (MAP) Pulse Ox O2 Delivery O2 Flow Rate FiO2 03/12/18 00:45 82 16 140/87 (104) 100 Room Air 03/11/18 20:18 99.0 Orders Orders Dicyclomine (Bentyl) (03/11/18 22:00) Lorazepam (Ativan) (03/11/18 22:00) Metoclopramide (Reglan) (03/11/18 22:00) Psych Screen (03/11/18 21:47) Dicyclomine (Bentyl) (03/12/18 09:00) Ondansetron Odt (Zofran Odt) (03/11/18 22:00) Lorazepam Inj (Ativan Inj) (03/11/18 22:15) MDM Medical Decision Making Medical Screen Exam Complete: Yes Emergency Medical Condition: Yes Differential Diagnosis Chronic pain, adjustment reaction, substance-induced mood disorder, suicidality , other Narrative Course Medical decision making 37-year-old with chronic pain, etiology unclear. She is treated for endometriosis. Several symptoms are strongly suggestive of marijuana hyper is a syndrome. Discussed this explicitly with the patient. She states she tried a 30 day period of abstinence in the past and did not really help. Nonetheless she is here now because she is having increased suicidal ideation depression related to her chronic pain. Sister commits her to come back to the emergency part for psychiatric evaluation. They have a third sister who is apparently being treated for severe substance abuse problems were related to opiates. Explicitly discussed with the patient will use any parenteral opiates for her chronic abdominal pain. I placed him standing orders for her symptom control. She does not meet criteria for involuntary evaluation. Recommend voluntary evaluation, psych to see, medically clear. Diagnosis Primary Impression: Adjustment reaction Additional Impression: Cannabis hyperemesis syndrome concurrent with and due to cannabis abuse Chandler Tovar MD Mar 12, 2018 00:58
[2018-03-12] MEDS: ONDANSETRON ODT 4 MG TAB PO PRN (05:04)
[2018-03-12 05:15] VITALS: BP 121/64; PULSE 86; RESP 16; O2SAT 99
[2018-03-12] MEDS ORDERED: DICYCLOMINE HCL 10 MG CAP PO SCH (09:00)
--- NOTE | 2018-03-12 10:38 | PD ---
History of Present Illness Chief Complaint: Psychiatric Symptoms Time Seen by Provider: 10:15 Travel History International Travel<30 Days: No Contact w/Intl Traveler<30days: No Known affected area: No Legal Status Legal Status: Voluntary History of Present Illness: History of Present Illness HPI This is a 37-year-old woman, history of chronic pain, no previous psychiatric history initially here with complaints of abdominal pain , extensive workup revealed a negative CT scan, some leukocytosis, was discharged. Patient states that she was suicidal because of the severe pain that she was in and her sister brought her back for psychiatric evaluation. Extensive workup for the abdominal pain in the past. She was treated for endometriosis. She does smoke marijuana heavily, daily, and treats her symptoms with scalding hot water to her back all suggestive of marijuana hyperemesis syndrome. She has been hospitalized once when she made suicidal statements briefly. She otherwise has never been treated for depression or any other psychiatric illness. Patient is seen.Patient is alert and oriented. Verbal and engaging. Speech is clear and logical. Patient denies current suicidal ideation. She has a set of seven year old twins.There is no psychosis and no debbie. She would like to be able to get treatment for her chronic pain. Unfortunately she has no insurance. She has never been treated at [facility] or at [facility]. She is interested in these referrals. Will have case coordinator meet with her. [facility] Past Medical History Hx Anticoagulant Therapy: No Arthritis: No Asthma: No Autoimmune Disease: No Blood Disorders: No Anxiety: No Depression: No Heart Rhythm Problems: No Cancer: Yes (MELANOMA?) Cardiovascular Problems: No High Cholesterol: No Chemotherapy: No Chest Pain: No Congestive Heart Failure: No COPD: No Cerebrovascular Accident: No Diabetes: No Diminished Hearing: No Endocrine: No Gastrointestinal Disorders: Yes (GASTROPARESIS) GERD: Yes Glaucoma: No Genitourinary: No Headaches: No Hepatitis: No Hiatal Hernia: Yes Heparin Induced Thrombocytopen: No Hypertension: No Immune Disorder: No Implanted Vascular Access Dvce: No Kidney Stones: No Musculoskeletal: No Neurologic: Yes Psychiatric: No Reproductive: Yes (ENDOMETRIOSIS) Respiratory: No Immunizations Current: Yes Migraines: No Myocardial Infarction: No Radiation Therapy: No Renal Failure: Yes (ARF) Seizures: No Sickle Cell Disease: No Sleep Apnea: No Thyroid Disease: No Ulcer: Yes Tetanus Vaccination: > 5 Years Influenza Vaccination: Yes ?: Unknown : 3 Para: 2 Miscarriage: 0 : 2 Ectopic : No Ovarian Cysts: No Dilation and Curettage (D&C): No Tubal Ligation: No Past Surgical History Abdominal Surgery: Yes (EXP LAP) AICD: No Appendectomy: No Arteriovenous Shunt: No Cardiac Surgery: No Section: Yes Cholecystectomy: Yes Ear Surgery: No Endocrine Surgery: No Eye Surgery: No Genitourinary Surgery: Yes Gynecologic Surgery: Yes (ABLATION) Hysterectomy: No (ABLATION) Insulin Pump: No Joint Replacement: No Neurologic Surgery: Yes Oral Surgery: No Pacemaker: No Thoracic Surgery: No Tonsillectomy: Yes Other Surgery: Yes (RECONSTRUCTIVE FACIAL SURGERY ) Psychiatric History Psychiatric History Hx Psychiatric Treatment: DENIES History of Inpatient Treatment: No Guns or firearms in home: No Social History Lives with and her children. Unemployed. Hx Alcohol Use: No Hx Tobacco Use: Yes Hx Substance Use: Yes Substance Use Type: Marijuana Other Substances Used: ER RECORDS INDICATE HISTORY OF DRUG SEEKING BEHAVIOR Hx of Substance Use Treatment: No Family Psychiatric History Negative. Allergies-Medications (Allergen,Severity, Reaction): Coded Allergies: amoxicillin (Verified Allergy, Severe, VOMITING, 03/11/18) morphine (Verified Allergy, Severe, Hives , 03/11/18) penicillin G (Verified Allergy, Severe, VOMITING, 03/11/18) Sulfa (Sulfonamide Antibiotics) (Verified Adverse Reaction, Severe, VOMITING, 03/11/18) Reported Meds & Prescriptions Reported Meds & Active Scripts Active Reported Zofran (Ondansetron HCl) 4 Mg Tab 4 Mg PO Q8HR PRN Review of Systems Psychiatric: COMPLAINS OF: Depression Mental Status Examination Appearance: Disheveled Consciousness: Alert Orientation: x4 Motor Activity: Normal gait Speech: Unremarkable Language: Adequate Fund of Knowledge: Adequate Attention and Concentration: Adequate Memory: Unremarkable Mood: Anxious Affect: Appropriate Thought Process & Associations: Intact, Logical, Goal directed Thought Content: Appropriate Hallucination Type: None Delusion Type: None Suicidal Ideation: No Suicidal Plan: No Suicidal Intention: No Homicidal Ideation: No Homicidal Plan: No Homicidal Intention: No Insight: Fair Judgment: Adequate MDM Medical Decision Making Medical Record Reviewed: Yes Assessment/Plan This is a 37-year-old woman, history of chronic pain, no previous psychiatric history initially here with complaints of abdominal pain , extensive workup revealed a negative CT scan, some leukocytosis, was discharged. Patient states that she was suicidal because of the severe pain that she was in and her sister brought her back for psychiatric evaluation. The patient is not suicidal. She wants treatment for both pain as well as for her difficulty coping with the pain. She is future oriented. Psychiatrically clear for discharge from ED. Will follow up with [facility] outpatient tomorrow. [facility] for medical follow up. Orders Orders Dicyclomine (Bentyl) (03/11/18 22:00) Lorazepam (Ativan) (03/11/18 22:00) Metoclopramide (Reglan) (03/11/18 22:00) Psych Screen (03/11/18 21:47) Dicyclomine (Bentyl) (03/12/18 09:00) Ondansetron Odt (Zofran Odt) (03/11/18 22:00) Lorazepam Inj (Ativan Inj) (03/11/18 22:15) Diet Regular Basic (03/12/18 Breakfast) Results Vital Signs Date Time Temp Pulse Resp B/P (MAP) Pulse Ox O2 Delivery O2 Flow Rate FiO2 03/12/18 09:16 03/12/18 05:15 86 16 121/64 (83) 99 Room Air 03/12/18 00:45 82 16 140/87 (104) 100 Room Air 03/11/18 23:05 89 16 96 Room Air 03/11/18 20:18 99.0 96 18 91/65 (74) 98 Diagnosis Primary Impression: Adjustment reaction Additional Impression: Cannabis hyperemesis syndrome concurrent with and due to cannabis abuse Psychiatrically Cleared: Yes Med/ Other Pt Specific Info: No Meds Exist/No RX given Disposition: 01 DISCHARGE HOME Condition: Stable Problem Qualifiers Primary Impression: Adjustment reaction Qualified Codes: F43.21 - Adjustment disorder with depressed mood Krista Byrne Mar 12, 2018 10:38
--- NOTE | 2018-03-12 11:09 | PD ---
Physical Exam Time Seen by Provider: 11:08 MARY Yadav has evaluated the patient, lifted the Butler act and cleared the patient for discharge. Data Data Last Documented VS Vital Signs Date Time Temp Pulse Resp B/P (MAP) Pulse Ox O2 Delivery O2 Flow Rate FiO2 03/12/18 09:16 03/12/18 05:15 86 16 99 Room Air 03/11/18 20:18 99.0 Orders Orders Dicyclomine (Bentyl) (03/11/18 22:00) Lorazepam (Ativan) (03/11/18 22:00) Metoclopramide (Reglan) (03/11/18 22:00) Psych Screen (03/11/18 21:47) Dicyclomine (Bentyl) (03/12/18 09:00) Ondansetron Odt (Zofran Odt) (03/11/18 22:00) Lorazepam Inj (Ativan Inj) (03/11/18 22:15) Diet Regular Basic (03/12/18 Breakfast) Ed Discharge Order (03/12/18 11:07) MDM Supervised Visit with LIV: No Cisco Course MARY Velasco has evaluated the patient, lifted the Butler act and cleared the patient for discharge. Patient contracts safety. Denies suicidal or homicidal ideations. Patient will be provided community resource packet to /ANALISA for follow-up. Has friends and family for support. Patient was medically cleared by alternate provider prior to psych screening. Patient has been evaluated by psychiatry and and is now cleared for discharge. Diagnosis Primary Impression: Adjustment reaction Additional Impression: Cannabis hyperemesis syndrome concurrent with and due to cannabis abuse Referrals: ANALISA (Out patient) [facility] Primary Care Physician Psychiatrist [facility] Patient Instructions: Cannabis Abuse (ED), General Instructions, Mood Disorders (ED) Additional Instruction: Contract safety to your self and others Stop using drugs Follow-up with psychiatry Follow-up with primary care provider Follow-up with [facility] Return to the emergency department immediately with worsening of symptoms Med/Other Pt SpecificInfo: No Change to Meds, No Meds Exist/No RX given Disposition: 01 DISCHARGE HOME Condition: Stable Awilda Castillo Mar 12, 2018 11:09
--- NOTE | 2018-03-12 11:09 | PD ---
Physical Exam Date Seen by Provider: Mar 12, 2018 Time Seen by Provider: 11:07 Narrative For full history and physical examination please see previous providers note. Data Data Last Documented VS Vital Signs Date Time Temp Pulse Resp B/P (MAP) Pulse Ox O2 Delivery O2 Flow Rate FiO2 03/12/18 09:16 03/12/18 05:15 86 16 99 Room Air 03/11/18 20:18 99.0 Orders Orders Dicyclomine (Bentyl) (03/11/18 22:00) Lorazepam (Ativan) (03/11/18 22:00) Metoclopramide (Reglan) (03/11/18 22:00) Psych Screen (03/11/18 21:47) Dicyclomine (Bentyl) (03/12/18 09:00) Ondansetron Odt (Zofran Odt) (03/11/18 22:00) Lorazepam Inj (Ativan Inj) (03/11/18 22:15) Diet Regular Basic (03/12/18 Breakfast) Ed Discharge Order (03/12/18 11:07) MDM Medical Record Reviewed: Yes Supervised Visit with LIV: No Narrative Course Patient presented voluntarily for psychiatric evaluation. Patient was seen and evaluated, medically cleared. Patient was then evaluated by psychiatry, patient was diagnosed with adjustment disorder. Patient will follow-up with Nelson Lamb, his primary doctor. Patient stable for discharge. Diagnosis Primary Impression: Adjustment reaction Qualified Codes: F43.20 - Adjustment disorder, unspecified Additional Impression: Cannabis hyperemesis syndrome concurrent with and due to cannabis abuse Referrals: Primary Care Physician Rad[facility] Patient Instructions: General Instructions Additional Instruction: Avoid use of illicit substances Follow-up with Nelson Lamb Follow-up with your primary doctor Return to emergency department for any new worsening symptoms Med/Other Pt SpecificInfo: No Change to Meds Disposition: 01 DISCHARGE HOME Condition: Stable Jorge,Karen HERNANDEZ Mar 12, 2018 11:09
== END 2018-03-12 11:47 | disposition home or self-care (01) ==
LOC: NEPD 20:02 → NEPJ 03-12 11:47
DX: F43.20 Adjustment disorder, unspecified (principal); F12.188 Cannabis abuse with other cannabis-induced disorder; F43.21 Adjustment disorder with depressed mood; R10.9 Unspecified abdominal pain; G89.29 Other chronic pain; N80.9 Endometriosis, unspecified; K21.9 Gastro-esophageal reflux disease without esophagitis
CPT/HCPCS: 96372; 99283; J2060